=== PATIENT | female | born 1955 | race Caucasian/White ===

== ENCOUNTER 2017-05-01 21:20 | Emergency (ER) | payer MEDICARE ==
[~2017-05-01] VITALS: Ht 167.6 cm; Wt 50.8 kg
[~2017-05-01 21:20] MED LIST: ADULT LOW DOSE81 MG; ANALPRAM E 2.51 EAC1 RECTAL; APAP650 PO; ASPIRIN81 M2 PO; BACTROBAN CREAM30 G1 TOP; BENTYL 20 MG TA20 M1 PO; CALCIUM + D3 E1 EACH PO; CALCIUM 600 +1 EA15 PO; CALCIUM 600 +1 EAC5 PO; CALCIUM 600 +1 EAC9 PO; CARAFATE 1 GM TA1 GM PO; CENTANY30 GM TP; CIPRO250 M2 PO; CIPRO500 M1 PO; CIPRO500 MG PO; CLEOCIN HCL300 MG PO; CLONAZEPAM 1 MG1 M1; FLOMAX0.4 MG PO; GEODON20 MG PO; KEFLEX500 MG PO; KLOR-CON 1010 MEQ PO; LANTUS SUBQ; LANTUSSOLASTAR SUBQ; LEXAPRO20 MG PO; LINZESS290 MCG PO; MAG-OX 400 TAB400 M1 PO; MAGNESIUM OXID400 MG PO; MAGOX 400400 MG PO; MIRALAX17 GM PO; NORVASC5 MG PO; NOVOLOG100 UNIT/1 SUBQ; POTASSIUM20 PO; PREDNISONE 10 M10 MG PO; PREDNISONE 5 MG5 M1 PO; PRILOSEC40 MG PO; RISPERDAL 1 MG T1 MG PO; SEROQUEL 100 M100 M1 PO; SEROQUEL 100 M100 M2 PO; SEROQUEL 100 M100 MG; SEROQUEL 100 M100 MG PO; SEROQUEL 25 MG25 M1 PO; SEROQUEL 50 MG50 M1 PO; SEROQUEL 50 MG50 MG PO; SEROQUEL PO; XANAX 0.25 MG0.25 MG PO
[2017-05-01] MEDS ORDERED: AMOXICILLIN 50500 MG PO (21:26)
[2017-05-01 21:59] LABS: ABSOLUTE LYMPHOCYTES 1.6 thou/uL (0.8-5.3); ABSOLUTE MONOCYTES 0.6 thou/uL (0.0-1.2); ABSOLUTE NEUTROPHILS 5.6 thou/uL (1.6-8.1); BASOPHILS 0.2 %; EOSINOPHILS 0.3 %; HEMATOCRIT 38.3 % (37.0-47.0); LYMPHOCYTES 20.1 %; MCH 31.7 pg (26.0-34.0); MCHC 33.9 g/dL (28.0-37.0); MCV 93.5 fL (80.0-100.0); MPV 7.6 fl. (7.2-11.1); NUCLEATED RBCS 0 /100WBC; PLATELET COUNT* 158 thou/uL (150-400); POLYS 71.4 %; RBC 4.09 mil/uL (4.20-5.00); RDW-CV 13.1 % (10.5-14.5); WBC 7.9 thou/uL (4.0-11.0)
[2017-05-01 22:07] LABS: INFLUENZA A ANTIGEN None Detected (None Detect); INFLUENZA B ANTIGEN None Detected (None Detect)
[2017-05-01 22:09] LABS: ANION GAP 7 mmol/L (7-16); BUN 35 mg/dL (7-18); CALCIUM 8.8 mg/dL (8.5-10.1); CHLORIDE 102 mmol/L (98-107); CO2 30 mmol/L (21-32); CREATININE 1.3 mg/dL (0.6-1.3); GLUCOSE 169 mg/dL (70-99); POTASSIUM 4.6 mmol/L (3.5-5.1); SODIUM 139 mmol/L (136-145)
[2017-05-01 22:16] LABS: ALBUMIN 3.4 g/dL (3.4-5.0); ALKALINE PHOSPHATASE 103 U/L (46-116); SGOT 23 U/L (15-37); SGPT 24 U/L (30-65); TOTAL BILIRUBIN 0.3 mg/dL (<0.1-1.0); TOTAL PROTEIN 8.1 g/dL (6.4-8.2); TROPONIN-I LEVEL <0.06 ng/mL (<0.06)
[2017-05-01] MEDS ORDERED: ZPAK PO ×2 (22:25→22:26)
[2017-05-01] MEDS ORDERED: PROAIR HFA8.5 GM INH ×2 (22:25→22:26)
[2017-05-01] MEDS ORDERED: ACETAMINOPHEN-1 EAC1 PO (22:26)
[2017-05-01] MEDS ORDERED: ALBUTEROL2.5 MG/31 INH (22:32)
[2017-05-01] MEDS ORDERED: TESSALON PERLE100 MG PO (22:32)
[2017-05-01 22:43] VITALS: BP 188/73
[2018-02-25] MEDS ORDERED: AUGMENTIN 875-1 EACH PO (23:18)
[2018-02-25] MEDS ORDERED: PROAIR HFA8.5 GM INH (23:18)
[2018-02-25] MEDS ORDERED: ERYTHROMYCIN E3.5 G2 OPHTHALMIC (23:18)
== END 2017-05-01 22:43 | disposition home or self-care (01) ==
LOC: M.ERS 21:20
PROVIDERS: Physician Assistant
DX: J20.9 Acute bronchitis, unspecified (principal); Q90.9 Down syndrome, unspecified; E11.9 Type 2 diabetes mellitus without complications; Z79.4 Long term (current) use of insulin; Z88.2 Allergy status to sulfonamides

== ENCOUNTER 2017-05-31 22:25 | Emergency (ER) | payer MEDICARE ==
[~2017-05-31] VITALS: Ht 144.8 cm; Wt 49.9 kg
[~2017-05-31 22:25] MED LIST changes: +ACETAMINOPHEN-1 EAC1 PO; +ALBUTEROL2.5 MG/31 INH; +AMOXICILLIN 50500 MG PO; +PROAIR HFA8.5 GM INH; +TESSALON PERLE100 MG PO; +ZPAK PO
[2017-05-31 23:39] LABS: ABSOLUTE LYMPHOCYTES 1.1 thou/uL (0.8-5.3); ABSOLUTE MONOCYTES 0.6 thou/uL (0.0-1.2); BASOPHILS 0.2 %; EOSINOPHILS 0.1 %; LYMPHOCYTES 23.8 %; MCHC 34.3 g/dL (28.0-37.0); MCV 93.3 fL (80.0-100.0); MONOCYTES 11.9 %; MPV 7.3 fl. (7.2-11.1); NUCLEATED RBCS 0 /100WBC; PLATELET COUNT* 167 thou/uL (150-400); RBC 3.75 mil/uL (4.20-5.00); RDW-CV 13.4 % (10.5-14.5); WBC 4.7 thou/uL (4.0-11.0)
[2017-05-31 23:52] LABS: ANION GAP 8 mmol/L (7-16); BUN 27 mg/dL (7-18); CALCIUM 8.7 mg/dL (8.5-10.1); CHLORIDE 98 mmol/L (98-107); CO2 28 mmol/L (21-32); CREATININE 1.6 mg/dL (0.6-1.3); GLUCOSE 178 mg/dL (70-99); SODIUM 134 mmol/L (136-145)
[2017-06-01 00:03] LABS: ALBUMIN 3.1 g/dL (3.4-5.0); ALKALINE PHOSPHATASE 86 U/L (46-116); SGOT 20 U/L (15-37); SGPT 15 U/L (30-65); TOTAL BILIRUBIN 0.4 mg/dL (<0.1-1.0); TOTAL PROTEIN 7.5 g/dL (6.4-8.2); TROPONIN-I LEVEL <0.06 ng/mL (<0.06)
[2017-06-01 00:27] LABS: INFLUENZA B ANTIGEN None Detected (None Detect)
[2017-06-01] MEDS ORDERED: OSELB75 PO (00:33)
[2017-06-01] MEDS ORDERED: ALBUTEROL2.5 MG/31 INH (00:33)
[2017-06-01 01:45] VITALS: BP 156/90
--- NOTE | 2017-06-01 11:03 | EKG ---
[place] [address] ELECTROCARDIOGRAM REPORT Name: SANJUANADAFNE Amarilis Room: [facility]#: [id number] Admission: 05/31/17 Attend Phys: Discharge: 06/01/17 Date of : 55 Report #: [id number] THIS REPORT FOR: //name// [facility] ED Test Date: 2017-05-31 Test Time: 22:59:36 Pat Name: DAFNE WEI Department: Room: Gender: F Gristmill Operator: BALA Jeronimo : 1955 Requested By: Debo Edge Order Number: [id number] MD: Benjie Ko Measurements Intervals [place] Rate: 81 P: 52 PA: 141 QRS: 39 QRSD: 83 T: 54 QT: 383 QTc: 445 Interpretive Statements Sinus rhythm Compared to ECG 02/01/2017 00:58:32 Sinus tachycardia no longer present ST (T wave) deviation no longer present Electronically Signed On 06-01-2017 11:03:23 CARBON COATING MACHINE OPERATOR by Benjie Ko [email or web address] <ELECTRONICALLY SIGNED> By: Benjie Ko MD, [facility] 06/01/17 1103 D: [id number] Benjie Ko MD, FACC /EPI
[2018-02-25] MEDS ORDERED: AUGMENTIN 875-1 EACH PO (23:18)
[2018-02-25] MEDS ORDERED: ERYTHROMYCIN E3.5 G2 OPHTHALMIC (23:18)
[2018-02-25] MEDS ORDERED: PROAIR HFA8.5 GM INH (23:18)
== END 2017-06-01 01:48 | disposition home or self-care (01) ==
LOC: M.ERS 22:25
PROVIDERS: Nurse Practitioner Family
DX: J11.1 Influenza due to unidentified influenza virus with other respiratory manifestations (principal); E11.9 Type 2 diabetes mellitus without complications; Z88.2 Allergy status to sulfonamides; Z79.4 Long term (current) use of insulin; Z90.49 Acquired absence of other specified parts of digestive tract

== ENCOUNTER 2017-10-17 02:53 | Emergency (ER) | payer MEDICARE ==
[~2017-10-17] VITALS: Ht 157.4 cm; Wt 54.0 kg
[~2017-10-17 02:53] MED LIST changes: +OSELB75 PO
[2017-10-17] MEDS ORDERED: LEVEMIR FL100 UNIT/2 SUBQ (03:05)
[2017-10-17 03:38] LABS: ABSOLUTE BASOPHILS 0.1 thou/uL (0.0-0.2); ABSOLUTE EOSINOPHILS 0.1 thou/uL (0.0-0.7); ABSOLUTE LYMPHOCYTES 2.4 thou/uL (0.8-5.3); ABSOLUTE MONOCYTES 0.5 thou/uL (0.0-1.2); ABSOLUTE NEUTROPHILS 5.4 thou/uL (1.6-8.1); EOSINOPHILS 1.6 %; HEMATOCRIT 40.2 % (37.0-47.0); HEMOGLOBIN 13.8 gm/dL (12.0-15.0); LYMPHOCYTES 27.8 %; MCH 32.8 pg (26.0-34.0); MCHC 34.2 g/dL (28.0-37.0); MONOCYTES 6.4 %; MPV 7.2 fl. (7.2-11.1); NUCLEATED RBCS 0 /100WBC; PLATELET COUNT* 247 thou/uL (150-400); POLYS 63.2 %; RBC 4.19 mil/uL (4.20-5.00); RDW-CV 12.8 % (10.5-14.5); WBC 8.6 thou/uL (4.0-11.0)
[2017-10-17 04:11] LABS: URINE BILIRUBIN NEGATIVE (Negative); URINE BLOOD 1+ (Negative); URINE CLARITY CLEAR; URINE COLOR STRAW; URINE GLUCOSE-RANDOM NEGATIVE (Negative); URINE KETONES NEGATIVE (Negative); URINE LEUKOCYTES-REFLEX TRACE (Negative); URINE NITRITE-REFLEX NEGATIVE (Negative); URINE PROTEIN NEGATIVE (Negative); URINE SPECIFIC GRAVITY <= 1.005 (1.005-1.030); URINE UROBILINOGEN 0.2 E.U./dl (0.2-1.0)
[2017-10-17 04:30] LABS: CALCIUM 9.8 mg/dL (8.5-10.1); CREATININE 1.3 mg/dL (0.6-1.3); POTASSIUM 5.1 mmol/L (3.5-5.1)
[2017-10-17 04:41] LABS: ALBUMIN 3.2 g/dL (3.4-5.0); TOTAL BILIRUBIN 0.3 mg/dL (<0.1-1.0); TOTAL PROTEIN 7.5 g/dL (6.4-8.2)
[2017-10-17 05:00] LABS: CASTS None Seen /LPF (None Seen); SQUAMOUS 0-3 Few /LPF (0-3); URINE RBC 3-10 Few /HPF (0-2); URINE WBC-REFLEX 0-5 Rare /HPF (0-5)
[2017-10-17 05:01] LABS: BACTERIA-REFLEX 1-9 Few /HPF (None Seen); CRYSTALS None Seen /LPF (None Seen)
[2017-10-17 05:28] VITALS: BP 123/63
[2018-02-25] MEDS ORDERED: AUGMENTIN 875-1 EACH PO (23:18)
[2018-02-25] MEDS ORDERED: ERYTHROMYCIN E3.5 G2 OPHTHALMIC (23:18)
[2018-02-25] MEDS ORDERED: PROAIR HFA8.5 GM INH (23:18)
== END 2017-10-17 05:35 | disposition home or self-care (01) ==
LOC: M.ERS 02:53
PROVIDERS: Emergency Medicine
DX: R10.84 Generalized abdominal pain (principal); R31.9 Hematuria, unspecified; E11.9 Type 2 diabetes mellitus without complications; Z79.4 Long term (current) use of insulin; Z86.2 Personal history of diseases of the blood and blood-forming organs and certain disorders involving the immune mechanism; Z90.49 Acquired absence of other specified parts of digestive tract; Z88.2 Allergy status to sulfonamides

== ENCOUNTER 2018-02-07 23:15 | Emergency (ER) | payer MEDICARE ==
[~2018-02-07] VITALS: Ht 154.9 cm; Wt 54.0 kg
[~2018-02-07 23:15] MED LIST changes: +LEVEMIR FL100 UNIT/2 SUBQ
[2018-02-07 23:56] LABS: ABSOLUTE EOSINOPHILS 0.1 thou/uL (0.0-0.7); ABSOLUTE LYMPHOCYTES 0.7 thou/uL (0.8-5.3); ABSOLUTE MONOCYTES 0.4 thou/uL (0.0-1.2); ABSOLUTE NEUTROPHILS 3.4 thou/uL (1.6-8.1); BASOPHILS 0.5 %; EOSINOPHILS 1.2 %; HEMATOCRIT 36.6 % (37.0-47.0); HEMOGLOBIN 12.2 gm/dL (12.0-15.0); LYMPHOCYTES 15.6 %; MCH 31.1 pg (26.0-34.0); MCHC 33.3 g/dL (28.0-37.0); MCV 93.3 fL (80.0-100.0); MONOCYTES 8.6 %; MPV 6.7 fl. (7.2-11.1); NUCLEATED RBCS 0 /100WBC; PLATELET COUNT* 199 thou/uL (150-400); POLYS 74.1 %; RBC 3.93 mil/uL (4.20-5.00); RDW-CV 13.4 % (10.5-14.5); WBC 4.6 thou/uL (4.0-11.0)
[2018-02-08 00:03] LABS: CALCIUM 8.7 mg/dL (8.5-10.1); CREATININE 1.8 mg/dL (0.6-1.3); POTASSIUM 3.9 mmol/L (3.5-5.1)
[2018-02-08 00:08] LABS: TOTAL BILIRUBIN 0.3 mg/dL (<0.1-1.0); TOTAL PROTEIN 7.2 g/dL (6.4-8.2)
[2018-02-08 00:43] LABS: URINE BILIRUBIN NEGATIVE (Negative); URINE BLOOD 2+ (Negative); URINE CLARITY CLEAR; URINE COLOR YELLOW; URINE GLUCOSE-RANDOM 2+ (Negative); URINE KETONES NEGATIVE (Negative); URINE LEUKOCYTES-REFLEX TRACE (Negative); URINE NITRITE-REFLEX NEGATIVE (Negative); URINE PROTEIN NEGATIVE (Negative); URINE SPECIFIC GRAVITY 1.015 (1.005-1.030); URINE UROBILINOGEN 0.2 E.U./dl (0.2-1.0)
[2018-02-08 00:50] VITALS: BP 166/80
[2018-02-08 00:53] LABS: CASTS None Seen /LPF (None Seen); SQUAMOUS >10 Many /LPF (0-3)
[2018-02-08 00:54] LABS: BACTERIA-REFLEX 1-9 Few /HPF (None Seen); CRYSTALS None Seen /LPF (None Seen); URINE RBC 3-10 Few /HPF (0-2); URINE WBC-REFLEX 6-15 Few /HPF (0-5)
[2018-02-25] MEDS ORDERED: ERYTHROMYCIN E3.5 G2 OPHTHALMIC (23:18)
[2018-02-25] MEDS ORDERED: AUGMENTIN 875-1 EACH PO (23:18)
[2018-02-25] MEDS ORDERED: PROAIR HFA8.5 GM INH (23:18)
== END 2018-02-08 00:50 | disposition home or self-care (01) ==
LOC: M.ERS 23:15
PROVIDERS: Family Medicine
DX: R31.9 Hematuria, unspecified (principal); E11.9 Type 2 diabetes mellitus without complications; Z90.49 Acquired absence of other specified parts of digestive tract; Z86.2 Personal history of diseases of the blood and blood-forming organs and certain disorders involving the immune mechanism; Z88.2 Allergy status to sulfonamides; Z79.4 Long term (current) use of insulin

== ENCOUNTER → 2018-02-25 | Emergency (ER) | payer MEDICARE ==
[~2018-02-25] VITALS: Ht 157.5 cm; Wt 63.3 kg
[~2018-02-25] MED LIST changes: +ATORVASTATIN CA40 MG PO; +AUGMENTIN 875-1 EACH PO; +BRILINTA90 MG PO; +ERYTHROMYCIN E3.5 G2 OPHTHALMIC; +LOPRESSOR25 PO
[2018-02-25 19:04] LABS: ABSOLUTE LYMPHOCYTES 1.5 thou/uL (0.8-5.3); ABSOLUTE MONOCYTES 0.3 thou/uL (0.0-1.2); ABSOLUTE NEUTROPHILS 4.1 thou/uL (1.6-8.1); BASOPHILS 0.3 %; EOSINOPHILS 0.4 %; HEMATOCRIT 38.9 % (37.0-47.0); HEMOGLOBIN 13.2 gm/dL (12.0-15.0); LYMPHOCYTES 25.2 %; MCH 31.2 pg (26.0-34.0); MCHC 33.9 g/dL (28.0-37.0); MONOCYTES 4.8 %; MPV 6.4 fl. (7.2-11.1); NUCLEATED RBCS 0 /100WBC; PLATELET COUNT* 229 thou/uL (150-400); POLYS 69.3 %; RBC 4.23 mil/uL (4.20-5.00); RDW-CV 13.5 % (10.5-14.5); WBC 5.9 thou/uL (4.0-11.0)
[2018-02-25 19:13] LABS: APTT 30.5 Seconds (25.0-31.3); INR 0.9; PROTIME 9.5 Seconds (9.20-11.50)
[2018-02-25 19:17] LABS: ANION GAP 4 mmol/L (7-16); BUN 22 mg/dL (7-18); CALCIUM 10.2 mg/dL (8.5-10.1); CHLORIDE 100 mmol/L (98-107); CO2 30 mmol/L (21-32); CREATININE 1.2 mg/dL (0.6-1.3); GLUCOSE 175 mg/dL (70-99); POTASSIUM 3.8 mmol/L (3.5-5.1); SODIUM 134 mmol/L (136-145)
[2018-02-25 19:36] LABS: ALBUMIN 3.5 g/dL (3.4-5.0); ALKALINE PHOSPHATASE 107 U/L (46-116); CK-MB MASS 0.7 ng/mL (<0.5-3.6); LIPASE 157 U/L (73-393); MAGNESIUM 1.8 mg/dL (1.8-2.4); NT-PRO BRAIN NAT PEPTIDE 61 pg/mL (<300); SGOT 20 U/L (15-37); SGPT 33 U/L (30-65); TOTAL BILIRUBIN 0.3 mg/dL (<0.1-1.0); TOTAL PROTEIN 8.1 g/dL (6.4-8.2); TROPONIN-I LEVEL <0.06 ng/mL (<0.06)
[2018-02-25 19:52] LABS: URINE CLARITY CLEAR; URINE COLOR COLORLESS
[2018-02-25 19:53] LABS: URINE BILIRUBIN NEGATIVE (Negative); URINE BLOOD NEGATIVE (Negative); URINE GLUCOSE-RANDOM NEGATIVE (Negative); URINE KETONES NEGATIVE (Negative); URINE LEUKOCYTES-REFLEX NEGATIVE (Negative); URINE NITRITE-REFLEX NEGATIVE (Negative); URINE PROTEIN NEGATIVE (Negative); URINE UROBILINOGEN 0.2 E.U./dl (0.2-1.0)
[2018-02-25 20:18] LABS: INFLUENZA A ANTIGEN None Detected (None Detect); INFLUENZA B ANTIGEN None Detected (None Detect)
[2018-02-26 00:08] VITALS: BP 154/84
--- NOTE | 2018-02-26 12:03 | EKG ---
[place] [address] ELECTROCARDIOGRAM REPORT Name: DAFNE WEI [id number] Admission: 02/25/18 Attend Phys: Discharge: Date of : 55 Report #: [id number] THIS REPORT FOR: //name// [facility] ED Test Date: 2018-02-25 Test Time: 18:38:15 Pat Name: DAFNE WEI Department: Room: Gender: F Retoucher Photoengraving: Yeni ADLER : 1955 Requested By: Cm Mckenzie Order Number: [id number] MD: Benjie Ko Measurements Intervals [place] Rate: 112 P: 43 NV: 145 QRS: 25 QRSD: 80 T: 7 QT: 319 QTc: 436 Interpretive Statements Sinus tachycardia Borderline repolarization abnormality Compared to ECG 05/31/2017 22:59:36 Sinus rhythm no longer present Electronically Signed On 02-26-2018 12:02:51 CDT by Benjie Ko [email or web address] <ELECTRONICALLY SIGNED> By: Benjie Ko MD, FACC 02/26/18 1202 1838 1838 Benjie Ko MD, FACC /EPI
--- NOTE | 2018-03-01 11:43 | EKG ---
[place] [address] ELECTROCARDIOGRAM REPORT Name: DAFNE WEI Room: [facility]#: [id number] Admission: 02/25/18 Attend Phys: Discharge: Date of : 55 Report #: [id number] THIS REPORT FOR: //name// [facility] Test Date: 2018-02-28 Test Time: 17:56:28 Pat Name: DAFNE WEI Department: Room: [address] Gender: F Products Mechanical Design Engineer: KOBE : 1955 Requested By: Dileep Bryant Order Number: [id number] [place] MD: Benjie Ko Measurements Intervals [place] Rate: 75 P: -13 MA: 133 QRS: 10 QRSD: 92 T: 31 QT: 389 QTc: 435 Interpretive Statements Sinus rhythm Electronically Signed On 03-01-2018 11:43:03 EXPORT AGENT by Bejnie Ko [email or web address] <ELECTRONICALLY SIGNED> By: Benjie Ko MD, [facility] 03/01/18 1143 1756 1756 Benjie Ko MD, [facility] /EPI
== END ==
LOC: M.ERS 18:33
PROVIDERS: Emergency Medicine; Family Medicine
DX: J06.9 Acute upper respiratory infection, unspecified (principal); E11.9 Type 2 diabetes mellitus without complications; Z90.49 Acquired absence of other specified parts of digestive tract; Z88.2 Allergy status to sulfonamides

== ENCOUNTER 2018-02-26 22:20 | Inpatient (IN) | payer MEDICARE ==
[~2018-02-26] VITALS: Ht 157.5 cm; Wt 65.8 kg
--- NOTE | ~2018-02-26 | EKG ---
[place] [address] ELECTROCARDIOGRAM REPORT Name: DAFNE WEI Room: [address] ADM IN M.R.#: [id number] Admission: 02/26/18 Attend Phys: Rafael Noland MD Discharge: Date of : 55 Report #: [id number] THIS REPORT FOR: //name// [facility] ED Test Date: 2018-02-26 Test Time: 22:26:44 Pat Name: DAFNE WEI Department: Room: [facility] Gender: F Sign Maintenance: MARICRUZ : 1955 Requested By: Geno Beltran Order Number: [id number] MD: Measurements Intervals [place] Rate: 113 P: 36 [place]: 133 QRS: 26 QRSD: 83 T: 71 QT: 313 QTc: 430 Interpretive Statements Sinus tachycardia Minimal ST depression, anterolateral leads Compared to ECG 02/25/2018 18:38:15 ST (T wave) deviation now present [email or web address] By: [id number] Epiphany EpiphanyMD /EPI
--- NOTE | ~2018-02-26 | EKG ---
[place] [address] ELECTROCARDIOGRAM REPORT Name: SANJUANADENADAFNE Room: [address] ADM IN M.R.#: [id number] Admission: 02/26/18 Attend Phys: Rafael Noland MD Discharge: Date of : 55 Report #: [id number] THIS REPORT FOR: //name// [facility] Test Date: 2018-02-27 Test Time: 08:12:05 Pat Name: DAFNE WEI Department: Room: [address] Gender: F Burglar Alarm Superintendent: ADONIS HOLT : 1955 Requested By: Rafael Noland Order Number: [id number] [place] MD: Measurements Intervals [place] Rate: 71 P: -22 MO: 140 QRS: 27 QRSD: 87 T: 45 QT: 414 QTc: 450 Interpretive Statements Sinus rhythm Compared to ECG 02/25/2018 18:38:15 Sinus tachycardia no longer present [email or web address] By: 1 0812 Epiphany Epiphany, /EPI
[~2018-02-26 22:20] MED LIST changes: -ATORVASTATIN CA40 MG PO; -BRILINTA90 MG PO; -LOPRESSOR25 PO
[2018-02-26 22:25] VITALS: BP 178/87
[2018-02-26 22:39] LABS: ABSOLUTE EOSINOPHILS 0.1 thou/uL (0.0-0.7); ABSOLUTE LYMPHOCYTES 1.6 thou/uL (0.8-5.3); ABSOLUTE MONOCYTES 0.4 thou/uL (0.0-1.2); ABSOLUTE NEUTROPHILS 3.3 thou/uL (1.6-8.1); BASOPHILS 0.3 %; EOSINOPHILS 2.4 %; HEMATOCRIT 38.5 % (37.0-47.0); HEMOGLOBIN 12.8 gm/dL (12.0-15.0); LYMPHOCYTES 28.9 %; MCH 30.8 pg (26.0-34.0); MCHC 33.2 g/dL (28.0-37.0); MCV 92.8 fL (80.0-100.0); MONOCYTES 8.1 %; MPV 6.4 fl. (7.2-11.1); NUCLEATED RBCS 0 /100WBC; PLATELET COUNT* 214 thou/uL (150-400); POLYS 60.3 %; RBC 4.15 mil/uL (4.20-5.00); RDW-CV 13.7 % (10.5-14.5); WBC 5.4 thou/uL (4.0-11.0)
[2018-02-26 22:48] LABS: ANION GAP 9 mmol/L (7-16); BUN 26 mg/dL (7-18); CALCIUM 8.9 mg/dL (8.5-10.1); CHLORIDE 98 mmol/L (98-107); CO2 28 mmol/L (21-32); CREATININE 1.4 mg/dL (0.6-1.3); GLUCOSE 224 mg/dL (70-99); POTASSIUM 3.6 mmol/L (3.5-5.1); SODIUM 135 mmol/L (136-145)
[2018-02-26 22:49] LABS: INR 0.9; PROTIME 9.5 Seconds (9.20-11.50)
[2018-02-26 22:59] LABS: ALBUMIN 3.3 g/dL (3.4-5.0); ALKALINE PHOSPHATASE 117 U/L (46-116); NT-PRO BRAIN NAT PEPTIDE 141 pg/mL (<300); SGOT 15 U/L (15-37); SGPT 30 U/L (30-65); TOTAL BILIRUBIN 0.3 mg/dL (<0.1-1.0); TOTAL PROTEIN 7.8 g/dL (6.4-8.2); TROPONIN-I LEVEL <0.06 ng/mL (<0.06)
[2018-02-26 23:32] LABS: URINE BILIRUBIN NEGATIVE (Negative); URINE BLOOD NEGATIVE (Negative); URINE CLARITY CLEAR; URINE COLOR YELLOW; URINE GLUCOSE-RANDOM TRACE (Negative); URINE KETONES NEGATIVE (Negative); URINE LEUKOCYTES-REFLEX NEGATIVE (Negative); URINE NITRITE-REFLEX NEGATIVE (Negative); URINE PROTEIN NEGATIVE (Negative); URINE SPECIFIC GRAVITY <= 1.005 (1.005-1.030); URINE UROBILINOGEN 0.2 E.U./dl (0.2-1.0)
[2018-02-27 00:10] VITALS: BP 160/73
[2018-02-27 04:24] VITALS: BP 140/77
--- NOTE | 2018-02-27 05:05 | NUR ---
pt arrives at 0037 admitted to room 228, pt is alert oriented to self and place, pt is accompanied by msaon her niece and DPOA, pt able to move from stretcher to bed with minimal assistance, cardiac monitoring initiated, pt is hypertensive, called nursing electrical plumbing supervisor to gets meds from pharmacy, the patient continues to complain of chest pain, dr davenport notified, received orders for pain medication, pt is assisted to get up to bed side commode frequently to void, urine is clear and yellow with no foul odor noted, pt resting in bed, tracing nsr on shipping lead, no s/s acute distress, call light within reach, bed alarm on , siderails up x 4
[2018-02-27 08:40] VITALS: BP 182/77
[2018-02-27 12:05] VITALS: BP 146/62
--- NOTE | 2018-02-27 12:13 | NUR ---
Pt is A&O. Resides at home with her niece, Juliane. Pt stated that she can dress and feed herself, stated that Juliane cleans the house and cooks. Per chart, Pt has down syndrome. Pt stated that she does not use any DME. CM left VM for niece, to complete assessment. Pt kept stating "I don't feel good today, the Dr told me I am staying in the hospital." Anticipate that Pt will dc home once medically stable. Following.
[2018-02-27 15:41] VITALS: BP 120/55
[2018-02-27 15:52] LABS: INFLUENZA A ANTIGEN None Detected (None Detect); INFLUENZA B ANTIGEN None Detected (None Detect)
--- NOTE | 2018-02-27 17:04 | NUR ---
PT REMAINED ALERT AND ORIENTED. PT HAS C/O CHEST PAIN. EKG COMPLETED AND NEGATIVE. MORPHINE ORDERED AND ADMINISTERED. UNABLE TO ASSESS IF PAIN DECREASED. PT HAS ECHO AND STRESS TESTS ORDERED. PT IS ON A CARB CONTROL DIET AND ACCU CHECK. PT IS STAND BY ASSIST. PT C/O NAUSEA, PO ZOFRAN GIVEN. HOURLY ROUNDING COMPLETED. WILL CONTINUE TO MONITOR. PT IS NSR ON THE MONITOR.
--- NOTE | 2018-02-27 17:53 | NUR ---
REVIEWED AND AGREE WITH ALL CHARTING AND ASSESSMENTS COPLETED BY NORIS Pace RN.
[2018-02-27 20:23] VITALS: BP 128/68
[2018-02-28 00:38] VITALS: BP 116/63
--- NOTE | 2018-02-28 00:46 | NUR ---
PT CARE ASSUMED AT 1930. PT ALERT AND ORIENTED TO PLACE, PERSON AND SITUATION. SAT 88%, NC AT 2L OXYGEN CONNECTED. CALL LIGHT WITHIN REACH AND FALL PRECAUTIONS MAINTAINED. NSR ON MONITOR. WILL CONTINUE TO MONITOR.
[2018-02-28 03:37] VITALS: BP 153/74
[2018-02-28 05:03] LABS: CHOLESTEROL 196 mg/dL (<200); HDL CHOLESTEROL 49 mg/dL (>40); LDL CHOLESTEROL 125 mg/dL (<100); TRIGLYCERIDE 114 mg/dL (<150); VLDL 23 mg/dL (<40)
[2018-02-28 05:04] LABS: SERUM ASSESSMENT CLEAR
--- NOTE | 2018-02-28 06:19 | NUR ---
PT ALERT TO HER OWN ABILITY, HAS COGNITIVE DISABILITY. SAT MAINTAINED IN 2L OXYGEN VIA NC. HOURLY ROUNDINGS DONE FOR SAFETY. PT SEEN RESTING IN BED. FALL PRECAUTIONS MAINTAINED AND CALL LIGHT WITHIN REACH. WILL CONTINUE TO MONITOR.
[2018-02-28 08:00] VITALS: BP 151/71
--- NOTE | 2018-02-28 11:30 | NUR ---
ASSUMED CARE OF PATIENT THIS AM AT 0730. PATIENT IS ALERT AND ORIENTED TO PERSON AND PLACE. SHE DENIES PAIN AND DISCOMFORT. PATIENT HAS BEEN UP TO THE BATHROOM WITN STANDBY ASSIST. SHE HAS VOICED NO C/O PAIN THUS FAR TODAY. TELE SHOWS SR. PATIENT IS TAKING HER MEALS WELL. DR PEÑA IN TO DISCUSS PLANS FOR TESTS TOMMORROW. PATIENT IS REPEATING NEW INFORMATION OFTEN THROUGHOUT THE DAY. O2 SAT 92@ ON ROOM AIR THIS AM. PATIENT PLACED ON O2 AT 2 LITERS. ASSISTED UP TO CHAIR, AND REMAINS THERE AT THIS TIME.
[2018-02-28 11:48] VITALS: BP 157/76
--- NOTE | 2018-02-28 12:19 | CON ---
[address] [address] CONSULTATION Name: DAFNE WEI Room: [address] ADM IN M.R.#: [id number] Admission: 02/26/18 Attend Phys: Rafael Noland MD Discharge: Date of : 55 Report #: [id number] THIS REPORT FOR: //name// CC: Rafael Yatesaleks Perezaleks HISTORY OF PRESENT ILLNESS: I was asked by Dr. Noland to see this 62-year-old white female in cardiology consultation for evaluation and treatment of chest pain. This lady is said to have Down syndrome; however, her facial appearance does not look like Down syndrome to me and I do not believe that she has a significant number of ulnar loops on her fingers, although they are hard to assess as she gets her fingers stuck quite a bit. She is a very poor historian. Her chief complaint really is that she just feels sick. She denied any chest pain at this time to me; however, apparently she was admitted because she had chest pain, but she told me that her chest pain was a long time ago. She told other people that it lasted a long time. She is a very poor historian. She could not relate to me whether it was worse with activity or better with rest, or associated with shortness of breath, nausea, vomiting or diaphoresis, and she could not relate whether it was related to food or whether or not she had nitroglycerin. She could not tell me whether she had any radiation of the pain. She denies dyspnea on exertion, shortness of breath at rest, orthopnea, PND or edema. She has not had syncope according to her. She says she does not smoke or drink. She does, however, have insulin-dependent diabetes mellitus and high blood pressure and is on treatment for those entities. She apparently does not have family history of heart disease, although she could not tell me her family history. She does not have kidney disease; I believe her creatinine was normal. She has not had any strokes or TIAs or claudication or open or nonhealing wounds. She has no previous heart problems. She has had a cholecystectomy. She has a history of plasmapheresis for some reason and she has had a biopsy of her kidney. ALLERGIES: SHE IS SAID TO BE ALLERGIC TO SULFA. REVIEW OF SYSTEMS: Completely unreliable. She answers yes to every question. SOCIAL HISTORY: She is single. She does not smoke, drink or use illegal drugs. She is unemployed. She has never been employed. LABORATORY DATA: Her chest x-ray showed no acute abnormality in the chest. Troponins were negative x 3-5. I found 3, but I was told it was 5, and she had a normal EKG. PHYSICAL EXAMINATION: GENERAL: She presents as well-developed, well-nourished white female, in no acute distress. VITAL SIGNS: Pulse was 72 and regular, blood pressure is 182/77, respirations 16 and regular, temperature is 98.2. [place] [address] CONSULTATION Name: DAFNE WEI Room: [address] IN .Jarek#: [id number] Admission: 02/26/18 Attend Phys: Rafael Noland MD Discharge: Date of : 55 Report #: [id number] HEENT: Her head was atraumatic. Eyes clear. NECK: Supple. There is no jugular venous distention or hepatojugular reflux. Thyroid is not enlarged. There is no adenopathy. SKIN: Warm and dry. Mucous membranes are moist. LUNGS: Clear to auscultation and percussion. HEART: Revealed normal first and second heart sound. There is soft S4. There is no S3. There are no murmurs, rubs, thrills, heaves or gallops. PMI is nondisplaced. ABDOMEN: Soft, flat, nontender, no palpable masses, no organomegaly. EXTREMITIES: Reveal no cyanosis, clubbing or edema. NEUROLOGIC: The patient mentated normally, talked normally and moved all extremities normally. She was, however, clearly mentally challenged. IMPRESSION: 1. Possible chest pain. 2. Poor historian. 3. Possible Down syndrome. 4. Essential hypertension. 5. Insulin-dependent diabetes mellitus. RECOMMENDATION: She should have an echo stress test, a nasal swab for flu and a fasting lipid profile. Thank you very much for asking me to see the patient. If there are any questions, please feel free to contact me. <ELECTRONICALLY SIGNED> By: Evonne Dawson MD, FACC 02/28/18 1219 1327 1620F. Herb Dawson MD, FACC /nt
[2018-02-28 15:31] VITALS: BP 155/81
[2018-02-28 20:00] VITALS: BP 155/75
[2018-03-01 00:38] VITALS: BP 137/61
--- NOTE | 2018-03-01 06:56 | NUR ---
this nurse assumes care of pt 02/28/18 at 1930, pt is alert and appropriate, pt complains of chest pain, she states I hurt so bad i cant sleep, pt is medicated for pain, pt rests quietly, pt not using call light appropriately tonight for brp, bed alarm on, pt up this morning at 0400, she request to sit in recliner chair, pt repeatedly asks if she is going to see the doctor today and if she can stay here until Thursday, pt has no further complaints of pain, pt continues nsr on cardiac monitoring, sitting in recliner chair with chair alarm on at this time, call light within reach
--- NOTE | 2018-03-01 07:30 | NUR ---
CHANGE OF SHIFT BEDSIDE REPORT GIVEN PATIENT SEEN AT BEDSIDE, IN BED ASLEEP ASSUMED PATIENT CARE
[2018-03-01 08:00] VITALS: BP 158/83
[2018-03-01 12:00] VITALS: BP 149/76
--- NOTE | 2018-03-01 15:59 | 2DMMODE ---
[place] [address] 2 D/M-MODE ECHOCARDIOGRAM Name: DAFNE WEI Room: [address] IN .R.#: [id number] Admission: 02/26/18 Attend Phys: Rafael Noland, Discharge: Date of : 55 Date of Service: 03/01/18 1559 Report #: [id number] THIS REPORT FOR: //name// APPROVED REPORT Study performed: 03/01/2018 11:32:36 EXAM: Comprehensive 2D, Doppler, and color-flow Echocardiogram Patient Location: Bedside BSA: 1.68 HR: 69 bpm BP: 137/61 mmHg Other Information Study Quality: Fair Indications Chest Pain 2D Dimensions IVSd: 10.97 (7-11mm) LVOT Diam: 19.04 (18-24mm) LVDd: 40.72 mm PWd: 9.15 (7-11mm) Ascending Ao: 27.06 (22-36mm) LVDs: 26.88 (25-40mm) Aortic Root: 24.94 mm Volumes Left Atrial Volume (Systole) LA ESV Index: 29.20 mL/m2 Aortic Valve AoV Peak Antonio.: 1.02 m/s AO Peak Gr.: 4.15 mmHg LVOT Max P.40 mmHg AO Mean Gr.: 2.50 mmHg LVOT Mean P.70 mmHg LVOT Max V: 0.92 m/s AO V2 VTI: 22.63 cm LVOT Mean V: 0.60 m/s NABIL (VTI): 2.50 cm2 LVOT V1 VTI: 19.88 cm Mitral Valve E/A Ratio: 0.97 MV Decel. Time: 165.76 ms MV E Max Antonio.: 0.75 m/s MV PHT: 48.07 ms MVA (PHT): 4.58 cm2 [place] [address] 2 D/M-MODE ECHOCARDIOGRAM Name: DAFNE WEI Room: [address] IN .R.#: [id number] Admission: 02/26/18 Attend Phys: Rafael Noland, Discharge: Date of : 55 Date of Service: 03/01/18 1559 Report #: [id number] TDI E/Lateral E': 6.82 E/Medial E': 7.50 Medial E' Antonio.: 0.10 m/s Lateral E' Antonio.: 0.11 m/s Pulmonary Valve PV Peak Antonio.: 0.88 m/s PV Peak Gr.: 3.07 mmHg Tricuspid Valve RAP Estimate: 5.00 mmHg TR Peak Gr.: 20.67 mmHg RVSP: 25.67 mmHg PA Pressure: 25.67 mmHg Left Ventricle The left ventricle is normal size. There is normal LV segmental wall motion. There is normal left ventricular wall thickness. Left ventricular systolic function is normal. The left ventricular ejection fraction is within the normal range. LVEF is 60-65%. Right Ventricle The right ventricle is normal size. The right ventricular systolic function is normal. Atria Left atrium is mildly dilated. The right atrium size is normal. Aortic Valve The aortic valve is normal in structure. No aortic regurgitation is present. There is no aortic valvular stenosis. Mitral Valve The mitral valve is normal in structure. There is no mitral valve regurgitation noted. No evidence of mitral valve stenosis. Tricuspid Valve The tricuspid valve is normal in structure. Trace tricuspid regurgitation. estimated pa pressure 25 mm Hg Pulmonic Valve Pulmonic valve is not well visualized. There is no pulmonic valvular regurgitation. Great Vessels The aortic root is normal in size. IVC is [place] [address] 2 D/M-MODE ECHOCARDIOGRAM Name: DAFNE WEI Room: [address] IN [facility]#: [id number] Admission: 02/26/18 Attend Phys: Rafael Noland, Discharge: Date of : 55 Date of Service: 03/01/18 1559 Report #: [id number] collapses >50% with inspiration. Pericardium There is no pericardial effusion. <Conclusion> LVEF is 60-65%. Left atrium is mildly dilated. <ELECTRONICALLY SIGNED> By: Benjie Ko MD, FACC 03/01/18 1559 155 155 Benjie Ko MD, FACC /INF
[2018-03-01 16:00] VITALS: BP 127/79; BP 135/79
--- NOTE | 2018-03-01 16:23 | CARDNUC ---
[place] [address] CARDIAC NUCLEAR IMAGING REPORT Name: DAFNE WEI Room: [address] IN [facility]#: [id number] Admission: 02/26/18 Attend Phys: Rafael Noland, Discharge: Date of : 55 Date of Service: 03/01/18 1623 Report #: [id number] THIS REPORT FOR: //name// APPROVED REPORT Study performed: 02/27/2018 13:40:00 Indication: Chest pain, Dyspnea Patient Location: In-Patient Room #: 228 Stress Tech: Elena Garcia Stress Nurse: Lanie Alfaro RN Ht: 5 ft 2 in Wt: 148 lbs BSA: 1.68 m2 BMI: 27.06 Medical History Medical History: Angina, SOB, HTN, Diabetes Medications: NTG, Amlodipine, ASA 81 MG Allergies: Sulfa ABT Cardiac Risk Factors: Age, HTN, DM, SOB Previous Cardiac Procedures: None Pretest Chest Pain Characteristics: No chest pain Exercise History: Sedentary Physical Disabilities: Legs, unstable gait Meds Held (24 hrs): NTG Resting Data Rest SPECT myocardial perfusion imaging was performed in supine position 10 minutes following the intravenous injection of 1.2 mCi of Thallium. Time of rest injection: 13:50 Administration Route: IV Administration Site: Right Hand Pharmacologic Stress Pharmacologic stress test was performed by injecting Regadenoson 0.4 mg IV push over 10-15 seconds immediately followed by the intravenous injection of 4.5 mCi of Thallium. Time of stress injection: 09:35 Administration Route: IV Administration Site: Right Hand Heart Rate at time of stress injection: 117 bpm. Gated Stress SPECT was performed 15 [place] [address] CARDIAC NUCLEAR IMAGING REPORT Name: DENA WEIINE Room: [address]#: [id number] Admission: 02/26/18 Attend Phys: Rafael Noland, Discharge: Date of : 55 Date of Service: 03/01/18 1623 Report #: [id number] The images were gated to evaluate regional wall motion and calculate left ventricular ejection fraction. Stress Test Details Stress Test: Pharmacologic stress testing performed using 0.4 mg of regadenoson per 5 mL given IV over 10 seconds. Reason for pharmacologic stress test: physical limitation, leg weakness, unsteady gait.. HR Max Heart Rate (APMHR): 158 bpm Resting HR: 73 bpm Target HR (85% APMHR): 134 bpm Max HR Achieved: 117 bpm % of APMHR: 74 Recovery HR: 106 bpm BP Resting BP: 157/71 mmHg Recovery BP: 158/74 mmHg ECG Resting ECG: Sinus Rhythm Stress ECG: Sinus Tachycardia ST Change: Horizontal ST depression Maximum ST Deviation: 0.5 mm Arrhythmia: None Recovery ECG: Sinus Rhythm Recovery ST Change: Horizontal ST depression Recovery ST Deviation: 0.5 mm Recovery Arrhythmia: None Clinical Reason for Termination: Completed protocol Stress Symptoms: None Exercise duration: 0 min 0 sec Exercise capacity: 1.00 METs The patient tolerated Lexiscan infusion without significant symptoms. Nurse Comments Patient exhibited with some confusion and possible learning disabled/mentally challanged. Patient could not answer questions appropriately. Patient tolerated sitting lexiscan with no side effects reported. Patient recovery unremarkable, patient was escorted with staff via wheelchair to [place] [address] CARDIAC NUCLEAR IMAGING REPORT Name: DAFNE WEI Room: [address] IN [facility].#: [id number] Admission: 02/26/18 Attend Phys: Rafael Noland, Discharge: Date of : 55 Date of Service: 03/01/18 1623 Report #: [id number] Stress ECG Conclusion The baseline 12-lead elect cardiogram shows sinus rhythm without significant ST or T wave abnormality. EKGs obtained during and post Lexiscan stress show 0.[address] segment depression in the inferolateral leads. There were no stress-induced arrhythmias. Study Quality Study: Good Artifact: No artifact Study Data Post stress, the left ventricular ejection was 78%.. TID = 1.85. Perfusion Perfusion images show reversible defects involving the basal inferior as well as apical renteria. Wall Motion Global LV systolic function appears to be normal. Nuclear Conclusion ECG Findings: equivocal Clinical Findings: negative for ischemia Nuclear Findings: positive for ischemia Exercise Capacity: not assessed Left Ventricular Function: normal Risk Study: high Myocardial perfusion images suggest ischemia in both the basal inferior as well as apical renteria. This is a high risk study. <Conclusion> The baseline 12-lead elect cardiogram shows sinus rhythm without significant ST or T wave abnormality. EKGs obtained during and post Lexiscan stress show 0.[address] segment depression in the inferolateral leads. There were no stress-induced arrhythmias. <ELECTRONICALLY SIGNED> By: Ed Mancera MD, FACC 03/01/18 1623 162 162 Ed Mancera MD, FACC /INF
--- NOTE | 2018-03-01 16:25 | EKG ---
[place] [address] ELECTROCARDIOGRAM REPORT Name: DAFNE WEI Room: [address] ADM IN M.R.#: [id number] Admission: 02/26/18 Attend Phys: Rafael Noland MD Discharge: Date of : 55 Report #: [id number] THIS REPORT FOR: //name// [facility] Test Date: 2018-03-01 Test Time: 14:48:00 Pat Name: DAFNE WEI Department: Room: [address] Gender: F Design Agent: : 1955 Requested By: Dileep Bryant Order Number: [id number] Lio MD: Benjie Ko Measurements Intervals [place] Rate: 82 P: -25 VA: 127 QRS: 37 QRSD: 86 T: 49 QT: 355 QTc: 415 Interpretive Statements Sinus rhythm Compared to ECG 02/28/2018 17:56:28 No significant changes Electronically Signed On 03-01-2018 16:25:48 MULTICRAFT OPERATOR by Benjie Ko [email or web address] <ELECTRONICALLY SIGNED> By: Benjie Ko MD, [facility] 03/01/18 1625 1448 1448 Benjie Ko MD, FACC /EPI
[2018-03-01 20:00] VITALS: BP 164/77
[2018-03-02] VITALS (11 sets, daily range): BP systolic 134–168; BP diastolic 67–82
--- NOTE | 2018-03-02 02:33 | NUR ---
PATIENT RESTED IN BED, NO ACUTE CHANGES. PATIENT DID NOT SHOW SIGNS OF DISTRESS. FALL PRECAUTIONS IN PLACE, CALL LIGHT WITH IN REACH, HOURLY ROUNDING OBSERVED. PATIENT IS NPO FOR CATH.
--- NOTE | 2018-03-02 07:15 | NUR ---
CHANGE OF SHIFT BEDSIDE REPORT GIVEN PATIENT SEEN AT BEDSIDE IN BED ASLEEP ASSUMED PATIENT CARE
--- NOTE | 2018-03-02 14:36 | EKG ---
[place] [address] ELECTROCARDIOGRAM REPORT Name: DAFNE WEI Room: [address] ADM IN M.R.#: [id number] Admission: 02/26/18 Attend Phys: Rafael Noland MD Discharge: Date of : 55 Report #: [id number] THIS REPORT FOR: //name// [facility] Test Date: 2018-03-02 Test Time: 10:15:52 Pat Name: DAFNE WEI Department: Room: [address] Gender: F Campus Recruiting Coordinator: : 1955 Requested By: Ed Mancera Order Number: [id number] Lio MD: Ed Mancera Measurements Intervals [place] Rate: 61 P: 15 CT: 147 QRS: 30 QRSD: 99 T: 65 QT: 420 QTc: 423 Interpretive Statements Sinus rhythm Compared to ECG 03/01/2018 14:48:00 No changes noted Electronically Signed On 03-02-2018 14:35:48 CHEESE COOK by Ed Mancera [email or web address] <ELECTRONICALLY SIGNED> By: Ed Mancera MD, [facility] 03/02/18 1435 1015 1015 Ed Mancera MD, FACC /EPI
[2018-03-03] VITALS (14 sets, daily range): BP systolic 122–179; BP diastolic 52–93
[2018-03-03 06:02] LABS: HEMATOCRIT 40.5 % (37.0-47.0); HEMOGLOBIN 13.5 gm/dL (12.0-15.0); MCH 31.5 pg (26.0-34.0); MCHC 33.3 g/dL (28.0-37.0); MCV 94.6 fL (80.0-100.0); RBC 4.28 mil/uL (4.20-5.00); RDW-CV 13.7 % (10.5-14.5); WBC 7.8 thou/uL (4.0-11.0)
[2018-03-03 06:15] LABS: ANION GAP 9 mmol/L (7-16); BUN 16 mg/dL (7-18); CALCIUM 9.4 mg/dL (8.5-10.1); CHLORIDE 100 mmol/L (98-107); CO2 26 mmol/L (21-32); CREATININE 1.1 mg/dL (0.6-1.3); GLUCOSE 232 mg/dL (70-99); POTASSIUM 4.3 mmol/L (3.5-5.1); SODIUM 135 mmol/L (136-145); TROPONIN-I LEVEL <0.06 ng/mL (<0.06)
--- NOTE | 2018-03-03 07:20 | NUR ---
CHANGE OF SHIFT, BEDSIDE REPORT PATIENT LESTER IN BED ASLEEP ASSUMED PATIENT CARE
--- NOTE | 2018-03-03 09:00 | CARD ---
[address] [address] CARDIAC CATH REPORT Name: DAFNE WEI Room: [address] IN .R.#: [id number] Admission: 02/26/18 Attend Phys: Rafael Noland MD Discharge: Date of : 55 Report #: [id number] THIS REPORT FOR: //name// APPROVED REPORT Study performed: 03/02/2018 07:35:48 Patient Details Patient Status: In-Patient Room #: The patient is a 62 year-old female Event Personnel Thelma Toledo, Arabella Chan RN RN, Renny Quinn (Makenzie) Calderon Montemayor Michael Professional Employer Consultant, Thelma Longoria GLASS TOUGHENING OPERATOR Monitor, Benjie Ko Resaw Tailer Procedures Performed [facility]SE[facility] Place w/wo Plasty Single LAD [id number] Left Heart Cath w/or w/o Coronaries [id number] [facility] Hemostasis with Hemoband Indication Abnormal ECG, Chest pain Risk Factors Arterial Hypertension, Hypercholesterolemia Admission/Lab Medications/Medications given during procedure Heparin Unfract. Procedure Narrative The patient was brought electively to the Cardiac Catheterization Laboratory and was prepped and draped in a sterile manner. The right wrist was infiltrated with 2% Lidocaine subcutaneous anesthesia. A 6 fr sheath was inserted into the right radial artery. Coronary angiography was performed using coronary diagnostic catheters. The right coronary system was accessed and visualized with a Diagnostic catheter. The left coronary system was accessed and visualized with a Diagnostic catheter. Left ventricular/Aortic Valve gradient assessed via catheter pullback. Closure device was deployed with a 6 Fr vascband. The patient tolerated the procedure well and there were no complications associated with the procedure. There was no hematoma. Intraoperative Conscious Sedation Sedation start time: 824 Case end Time: [place] [address] CARDIAC CATH REPORT Name: DAFNE WEI Room: [address] IN [facility]#: [id number] Admission: 02/26/18 Attend Phys: Rafael Noland MD Discharge: Date of : 55 Report #: [id number] Fentanyl 50 mcg Versed 1 mg Fluoro Time: 8.50 minutes Dose: DAP 09254.00 cGycm2 1218 mGy Contrast Type and Amount: Visipaque 250 ml Coronary Angiography The patient's coronary anatomy is right dominant. Diagnostic Cath Left Main Normal. LAD Normal proximally with a 99% focal stenosis in the midportion and 70% narrowed distally. Diagonal 1 90% proximal tubular stenosis. Circumflex Free of significant disease. OM1 90% tubular stenosis in a large first obtuse marginal branch. OM2 Normal. Right Coronary 40% narrowed proximally and 40% narrowed distally. R PDA Normal. RPLV Normal. Left Ventriculography Left Ventriculography was not performed. Hemodynamics The aortic pressure is 126/86 mmHg with a mean of 104 mmHg. The left ventricular pressure is 109/15 mmHg with a mean of mmHg. The left ventricular end diastolic pressure is 15 mmHg. There was no gradient across the aortic valve upon pullback. Pullback from the left ventricle to the aorta revealed no gradient across the aortic valve. PCI Technique Lesion Anticoagulation was achieved with Heparin. Patient was preloaded with Ticagrelor PO 180 mg. Percutaneous coronary intervention was performed on the mid left anterior descending artery segment. The lesion stenosis prior to intervention was 99% with LUKE 3 flow. A 6FR XB LAD 3.0 100CM Guide Catheter was used to engage the lm ostium. A IG: BMW 190cm Interventional Guidewire was used to cross the lesion. BALLOON DILATION A Balloon catheter Mini Trek RX 2.0 X 12 was inserted and inflated up to 8.00atm for 10seconds. Repeat angiography [place] [address] CARDIAC CATH REPORT Name: DENA WEIINE Room: [address]#: [id number] Admission: 02/26/18 Attend Phys: Rafael Noland MD Discharge: Date of : 55 Report #: [id number] post-dilatation results: 70% stenosis. Additional Inflation: 8.00atm for 11seconds. STENT DEPLOYMENT A drug-eluting stent Morris RX Stent 2.0X22mm was inserted and inflated up to 10atm for 12seconds. Repeat angiography revealed the following post-stent deployment results: 0% stenosis. Additional Inflation: 11atm for 12seconds. Additional Inflation: 11atm for 11seconds. A second stent was placed more proximal with minimal overlap between the 2 stents. Morris RX Stent 2.0x18 mm inflated to 17 sec at 14 abeba. Additional inflation of 10 sec at 16 abeba. Additional inflation of 8 sec at 18atm Final angiography reveals 0 % stenosis with LUKE 3 flow. Conclusion 1. successful placement of 2 drug eluting stents in the mid lad 2. Three-vessel coronary artery disease as outlined above. 3. Normal left ventricular end-diastolic pressure. Recommendations Plan staged stenting of the circumflex artery Medications Administered Ticagrelor Diagnostic Cath Approved by: Ed Mancera MD Date/Time: <ELECTRONICALLY SIGNED> By: Benjie Ko MD, [facility] 03/03/18 0859 0859Benjie Ko MD, FACC /INF
--- NOTE | 2018-03-03 11:11 | CARD ---
[address] [address] CARDIAC CATH REPORT Name: DAFNE WEI Room: 228P ADM IN .R.#: [id number] Admission: 02/26/18 Attend Phys: Rafael Noland MD Discharge: Date of : 55 Report #: [id number] THIS REPORT FOR: //name// APPROVED REPORT Study performed: 03/03/2018 09:30:02 Patient Details Patient Status: In-Patient Room #: 228 The patient is a 62 year-old female Event Personnel Benjie Ko Sour Bleaching Pleater, Claudia Shah RN Organ Tuner Electronic, Renny Quinn (R) Monitor, Thelma Longoria Scrub Procedures Performed ROSEY Place w/wo Plasty Single CIRC Indication Abnormal ECG, Positive stress test, Chest pain Risk Factors Arterial Hypertension, Hypercholesterolemia Previous Procedures/Diagnoses Previous PCI Admission/Lab Medications/Medications given during procedure Heparin Unfract. Procedure Narrative The patient was brought electively to the Cardiac Catheterization Laboratory and was prepped and draped in a sterile manner. The right wrist was infiltrated with 1% Lidocaine subcutaneous anesthesia. A Slender Glidesheath sheath was inserted into the right radial artery. Coronary angiography was performed using coronary diagnostic catheters. The left coronary system was accessed and visualized with a Guide 6FR XB 3.0 100CM catheter. Left ventricular/Aortic Valve gradient assessed via catheter pullback. Closure device was deployed with a 6 Fr Vasc-Band Reg 24cm. The patient tolerated the procedure well and there were no complications associated with the procedure. There was no hematoma. Aortic valve was crossed with a 6 fr JR4 catheter. An arteriogram of the RCA was not performed since it had [place] [address] CARDIAC CATH REPORT Name: DAFNE WEI Room: [address]#: [id number] Admission: 02/26/18 Attend Phys: Rafael Noland MD Discharge: Date of : 55 Report #: [id number] Intraoperative Conscious Sedation Sedation start time: 10:01 Case end Time: 10:31 Versed 2 mg Fluoro Time: 5.3 minutes Dose: DAP 83238 cGycm2 644 mGy Contrast Type and Amount: Visipaque 45 ml Coronary Angiography The patient's coronary anatomy is right dominant. Diagnostic Cath Left Main 0% stenosis LAD 30% proximal stenosis. The long stent after the 3rd diagonal branch had 0% stenosis Diagonal 3 90% ostial stenosis OM2 90% long stenosis Right Coronary not assessed Left Ventriculography Left Ventriculography was not performed. Hemodynamics The aortic pressure is 101/58 mmHg with a mean of 74 mmHg. The left ventricular pressure is 109/10 mmHg with a mean of mmHg. The left ventricular end diastolic pressure is 11 mmHg. There was no gradient across the aortic valve upon pullback. Pullback from the left ventricle to the aorta revealed no gradient across the aortic valve. PCI Technique Lesion Anticoagulation was achieved with Heparin. Patient was preloaded with Brillinta. Percutaneous coronary intervention was performed on the second obtuse marginal branch segment. The lesion stenosis prior to intervention was 90% with LUKE 3 flow. A 6FR XB 3.0 100CM Guide Catheter was used to engage the lm ostium. A IG: BMW 190cm Interventional Guidewire was used to cross the lesion. BALLOON DILATION A Balloon catheter Trek RX 2.5 X 15 was inserted and inflated up to 12.00atm for 19seconds. Repeat angiography revealed the following post-dilatation results: 70% stenosis. Additional Inflation: 12.00atm for 13seconds. [place] [address] CARDIAC CATH REPORT Name: DAFNE WEI Room: [address] IN [facility].#: [id number] Admission: 02/26/18 Attend Phys: Rafael Noland MD Discharge: Date of : 55 Report #: [id number] STENT DEPLOYMENT A pmde-rmhkcvigerb-hthylpr stent [place] RX Stent 2.5X30mm was inserted and inflated up to 14.00atm for 20seconds. Repeat angiography revealed the following post-stent deployment results: 0% stenosis. Additional Inflation: 18.00atm for 20seconds. Additional Inflation: 20.00atm for 20seconds. Final angiography reveals 0 % stenosis with LUKE 3 flow. Conclusion 1. no restenosis of stent noted in mid lad 2. successful placement of a drug eluting stent in the 2nd marginal branch of the circumflex Recommendations Cardiac Rehabilitation Referral Aggressive Medical Therapy <ELECTRONICALLY SIGNED> By: Benjie Ko MD, FACC 03/03/18 1111 1111 1111Davijordan Ko MD, FACC /INF
--- NOTE | 2018-03-03 16:37 | EKG ---
[place] [address] ELECTROCARDIOGRAM REPORT Name: DAFNE WEI Room: [address] ADM IN M.R.#: [id number] Admission: 02/26/18 Attend Phys: Rafael Noland MD Discharge: Date of : 55 Report #: [id number] THIS REPORT FOR: //name// [facility] Test Date: 2018-03-03 Test Time: 09:22:30 Pat Name: DAFNE WEI Department: Room: [address] Gender: F Assistant Center Manager: : 1955 Requested By: Ed Mancera Order Number: [id number] Reading MD: Benjie Ko Measurements Intervals [place] Rate: 61 P: 52 [place]: 149 QRS: 23 QRSD: 94 T: 45 QT: 452 QTc: 456 Interpretive Statements Sinus rhythm Abnormal R-wave progression, early transition Compared to ECG 03/02/2018 10:15:52 No significant changes Electronically Signed On 03-03-2018 16:37:26 WAFER SLICER by Benjie Ko [email or web address] <ELECTRONICALLY SIGNED> By: Benjie Ko MD, [facility] 03/03/18 1637 1 1 Benjie Ko MD, [facility] /EPI
--- NOTE | 2018-03-03 16:40 | EKG ---
[place] [address] ELECTROCARDIOGRAM REPORT Name: DENA WEIINE Room: [address] ADM IN M.R.#: [id number] Admission: 02/26/18 Attend Phys: Rafael Noland MD Discharge: Date of : 55 Report #: [id number] THIS REPORT FOR: //name// [facility] Test Date: 2018-03-03 Test Time: 11:35:05 Pat Name: DAFNE WEI Department: Room: [address] Gender: F Farmworker Dairy: : 1955 Requested By: Benjie Ko Order Number: [id number] Reading MD: Benjie Ko Measurements Intervals [place] Rate: 47 P: [place]: QRS: 30 QRSD: 99 T: 43 QT: 508 QTc: 450 Interpretive Statements sinus bradycardia Electronically Signed On 03-03-2018 16:40:35 WRAP KNITTING MACHINE OPERATOR by Benjie Ko [email or web address] <ELECTRONICALLY SIGNED> By: Benjie Ko MD, [facility] 03/03/18 1640 1135 1135 Benjie Ko MD, FACC /EPI
--- NOTE | 2018-03-03 17:14 | NUR ---
PT.HAD ANOTHER CARDIAC CATH TODAY WITH STENT PLACEMENT. POSSIBILITY OF DISCHARGE TOMORROW. PT.SLEEPING, DID NOT AWAKEN
[2018-03-04] VITALS: BP 135/50
[2018-03-04 04:00] VITALS: BP 126/69
[2018-03-04 04:47] LABS: HEMATOCRIT 35.8 % (37.0-47.0); HEMOGLOBIN 11.9 gm/dL (12.0-15.0); MCH 31.2 pg (26.0-34.0); MCHC 33.4 g/dL (28.0-37.0); MCV 93.3 fL (80.0-100.0); MPV 7.1 fl. (7.2-11.1); RBC 3.83 mil/uL (4.20-5.00); RDW-CV 13.6 % (10.5-14.5); WBC 7.4 thou/uL (4.0-11.0)
[2018-03-04 05:03] LABS: CALCIUM 8.9 mg/dL (8.5-10.1); CREATININE 1.5 mg/dL (0.6-1.3); POTASSIUM 4.4 mmol/L (3.5-5.1); TROPONIN-I LEVEL 0.07 ng/mL (<0.06)
--- NOTE | 2018-03-04 06:32 | NUR ---
PATIENT RESTED IN BED, NO ACUTE CHANGES. PATIENT DID NOT SHOW SIGNS OF DISTRSS. FALL PRECAUTIONS IN PLACE, CALL LIGHT WITH IN REACH, HOURLY ROUNDING OBSERVED.
[2018-03-04 08:27] VITALS: BP 116/70
[2018-03-04 11:49] VITALS: BP 97/77
--- NOTE | 2018-03-04 15:02 | EKG ---
[place] [address] ELECTROCARDIOGRAM REPORT Name: DAFNE WEI Room: [address] ADM IN M.R.#: [id number] Admission: 02/26/18 Attend Phys: Rafael Noland MD Discharge: Date of : 55 Report #: [id number] THIS REPORT FOR: //name// [facility] Test Date: 2018-03-04 Test Time: 08:50:35 Pat Name: DAFNE WEI Department: Room: [address] Gender: F Fisheries Biologist: : 1955 Requested By: Benjie Ko Order Number: [id number] Lio MD: Benjie Ko Measurements Intervals [place] Rate: 60 P: -58 [place]: 132 QRS: 35 QRSD: 93 T: 55 QT: 432 QTc: 432 Interpretive Statements Ectopic atrial rhythm Abnormal R-wave progression, early transition Compared to ECG 03/03/2018 11:35:05 bradycardia no longer present Electronically Signed On 03-04-2018 15:02:33 STICKER ON by Benjie Ko [email or web address] <ELECTRONICALLY SIGNED> By: Benjie Ko MD, [facility] 03/04/18 1502 Benjie Ko MD, [facility] /EPI
[2018-03-04 16:00] VITALS: BP 133/64
--- NOTE | 2018-03-04 19:02 | NUR ---
PT'S GUARDIAN TOOK [place] SAMPLES FOR PT HOME.
[2018-03-04 20:00] VITALS: BP 129/58
[2018-03-05] VITALS: BP 143/67
[2018-03-05 04:00] VITALS: BP 127/61
--- NOTE | 2018-03-05 05:58 | NUR ---
PATIENT PROGRESSING TOWARDS GOALS AND ANITICIPATING DISCHARGE TODAY: PATIENT DENIES CHEST PAIN THIS SHIFT. BLOOD SUGARS IMPROVED. IVF INFUSING PER ORDERS. HOURLY ROUNDING OBSERVED. CALL LIGHT WITHIN REACH
[2018-03-05 08:23] VITALS: BP 147/75
[2018-03-05 09:43] LABS: CREATININE 1.1 mg/dL (0.6-1.3)
[2018-03-05 09:49] LABS: CALCIUM 6.9 mg/dL (8.5-10.1)
--- NOTE | 2018-03-05 10:28 | NUR ---
DR. ACEVES ASSESSED RIGHT RADIAL ARTERY CATH SITE. DR. ACEVES INSTRUCTS THAT SITE IS INTACT WITH PALPABLE 2 PLUSE PULSE, CAPILLARY REFILL IS LESS THAN 3 SECONDS AND FINGERS AND HAND ARM WARM TO THE TOUCH. PT HAS TINY HEMATOMA AT SITE AND INSTRUCTED TO KEEP ARM ELEVATED AND CLEAN AND DRY. PT OK TO GO HOME FROM DR. GILES STAND POINT. WILL CONTINUE TO ASSESS.
[2018-03-05] MEDS ORDERED: ATORVASTATIN CA40 MG PO (11:39)
[2018-03-05] MEDS ORDERED: LOPRESSOR25 PO (11:40)
[2018-03-05 11:57] VITALS: BP 105/58
[2018-03-05 13:04] VITALS: BP 134/78
[2018-03-05] MEDS ORDERED: BRILINTA90 MG PO (13:58)
--- NOTE | 2018-03-05 14:26 | NUR ---
DISCONTINUE IV AND TELE. PT AND NIECE UNDERSTAND ALL FOLLOW UP ORDERS. WILL DISCHARGE TO HOME.
== END 2018-03-05 14:39 | disposition home or self-care (01) | DRG 246 ==
LOC: M.ERS 22:20 → M.TBA-ER 23:15 → M.2W 23:15
PROVIDERS: Emergency Medicine; Internal Medicine; Internal Medicine Cardiovascular Disease; ADMIT Internal Medicine
PROC: 027034Z Dilation of Coronary Artery, One Artery with Drug-eluting Intraluminal Device, Percutaneous Approach (ICD-10-PCS; principal; 2018-03-02)
PROC: 027035Z Dilation of Coronary Artery, One Artery with Two Drug-eluting Intraluminal Devices, Percutaneous Approach (ICD-10-PCS; principal; 2018-03-02)
PROC: B211YZZ Fluoroscopy of Multiple Coronary Arteries using Other Contrast (ICD-10-PCS; principal; 2018-03-02)
PROC: 4A023N7 Measurement of Cardiac Sampling and Pressure, Left Heart, Percutaneous Approach (ICD-10-PCS; principal; 2018-03-02)
PROC: 4A023N7 Measurement of Cardiac Sampling and Pressure, Left Heart, Percutaneous Approach (ICD-10-PCS; 2018-03-03)
PROC: B211YZZ Fluoroscopy of Multiple Coronary Arteries using Other Contrast (ICD-10-PCS; 2018-03-03)
DX: I21.4 Non-ST elevation (NSTEMI) myocardial infarction (principal); N17.0 Acute kidney failure with tubular necrosis; I50.32 Chronic diastolic (congestive) heart failure; I13.0 Hypertensive heart and chronic kidney disease with heart failure and stage 1 through stage 4 chronic kidney disease, or unspecified chronic kidney disease; E05.90 Thyrotoxicosis, unspecified without thyrotoxic crisis or storm; N18.3 Chronic kidney disease, stage 3 (moderate); E11.22 Type 2 diabetes mellitus with diabetic chronic kidney disease; I25.10 Atherosclerotic heart disease of native coronary artery without angina pectoris; Z88.2 Allergy status to sulfonamides; Z79.4 Long term (current) use of insulin; Q90.9 Down syndrome, unspecified; Z82.49 Family history of ischemic heart disease and other diseases of the circulatory system; Z79.82 Long term (current) use of aspirin; Z79.899 Other long term (current) drug therapy; Z28.21 Immunization not carried out because of patient refusal

== ENCOUNTER 2018-03-10 13:25 | Emergency (ER) | payer MEDICARE ==
[~2018-03-10] VITALS: Ht 157.5 cm; Wt 64.0 kg
[~2018-03-10 13:25] MED LIST changes: +ATORVASTATIN CA40 MG PO; +BRILINTA90 MG PO; +LOPRESSOR25 PO
[2018-03-10] MEDS ORDERED: NOVOLOG100 UNIT/1 SUBQ (13:38)
[2018-03-10 14:48] LABS: ABSOLUTE LYMPHOCYTES 0.9 thou/uL (0.8-5.3); ABSOLUTE MONOCYTES 0.3 thou/uL (0.0-1.2); BASOPHILS 0.2 %; EOSINOPHILS 0.6 %; HEMATOCRIT 37.3 % (37.0-47.0); HEMOGLOBIN 12.3 gm/dL (12.0-15.0); LYMPHOCYTES 10.4 %; MCH 30.7 pg (26.0-34.0); MONOCYTES 4.1 %; MPV 6.7 fl. (7.2-11.1); NUCLEATED RBCS 0 /100WBC; PLATELET COUNT* 315 thou/uL (150-400); POLYS 84.7 %; RBC 4.01 mil/uL (4.20-5.00); WBC 8.2 thou/uL (4.0-11.0)
[2018-03-10 14:54] LABS: ANION GAP 8 mmol/L (7-16); BUN 29 mg/dL (7-18); CALCIUM 9.2 mg/dL (8.5-10.1); CHLORIDE 102 mmol/L (98-107); CO2 28 mmol/L (21-32); CREATININE 1.5 mg/dL (0.6-1.3); GLUCOSE 201 mg/dL (70-99); POTASSIUM 4.5 mmol/L (3.5-5.1); SODIUM 138 mmol/L (136-145)
[2018-03-10 14:56] LABS: APTT 26.6 Seconds (25.0-31.3); PROTIME 9.8 Seconds (9.20-11.50)
[2018-03-10 15:05] LABS: ALBUMIN 3.1 g/dL (3.4-5.0); ALKALINE PHOSPHATASE 97 U/L (46-116); NT-PRO BRAIN NAT PEPTIDE 179 pg/mL (<300); SGOT 16 U/L (15-37); SGPT 23 U/L (30-65); TOTAL BILIRUBIN 0.4 mg/dL (<0.1-1.0); TOTAL PROTEIN 7.2 g/dL (6.4-8.2); TROPONIN-I LEVEL <0.06 ng/mL (<0.06)
[2018-03-10 15:49] VITALS: BP 123/54
--- NOTE | 2018-03-10 17:39 | EKG ---
[place] [address] ELECTROCARDIOGRAM REPORT Name: DAFNE WEI Amarilis Room: [facility]#: [id number] Admission: 03/10/18 Attend Phys: Discharge: 03/10/18 Date of : 55 Report #: [id number] THIS REPORT FOR: //name// [facility] ED Test Date: 2018-03-10 Test Time: 13:31:02 Pat Name: DAFNE WEI Department: Room: Gender: F Diazo Technician: CARLOS : 1955 Requested By: Valentina Arana Order Number: [id number] MD: Benjie Ko Measurements Intervals [place] Rate: 51 P: -31 SC: 148 QRS: 45 QRSD: 86 T: 79 QT: 459 QTc: 423 Interpretive Statements Sinus bradycardia Abnormal R-wave progression, early transition Compared to ECG 03/04/2018 08:50:35 rate slowed Electronically Signed On 03-10-2018 17:39:16 PRODUCTION ENGINE REPAIRER by Benjie Ko [email or web address] <ELECTRONICALLY SIGNED> By: Benjie Ko MD, [facility] 03/10/18 1739 D: 11/1330 30 Benjie Ko MD, FACC /EPI
== END 2018-03-10 15:49 | disposition home or self-care (01) ==
LOC: M.ERS 13:25
PROVIDERS: Personal Emergency Response Attendant
DX: I20.8 Other forms of angina pectoris (principal); I10 Essential (primary) hypertension; E11.9 Type 2 diabetes mellitus without complications; Z90.49 Acquired absence of other specified parts of digestive tract; Z95.5 Presence of coronary angioplasty implant and graft; Z88.2 Allergy status to sulfonamides

== ENCOUNTER 2018-04-19 16:39 | Emergency (ER) | payer MEDICARE ==
[~2018-04-19] VITALS: Ht 152.4 cm; Wt 59.0 kg
[2018-04-19 17:23] LABS: ABSOLUTE LYMPHOCYTES 0.8 thou/uL (0.8-5.3); ABSOLUTE MONOCYTES 0.4 thou/uL (0.0-1.2); ABSOLUTE NEUTROPHILS 6.1 thou/uL (1.6-8.1); BASOPHILS 0.5 %; EOSINOPHILS 0.2 %; HEMATOCRIT 36.6 % (37.0-47.0); HEMOGLOBIN 12.4 gm/dL (12.0-15.0); LYMPHOCYTES 10.6 %; MCH 31.9 pg (26.0-34.0); MCV 93.9 fL (80.0-100.0); MONOCYTES 4.9 %; MPV 6.8 fl. (7.2-11.1); NUCLEATED RBCS 0 /100WBC; PLATELET COUNT* 237 thou/uL (150-400); POLYS 83.8 %; RDW-CV 14.4 % (10.5-14.5); WBC 7.3 thou/uL (4.0-11.0)
[2018-04-19 17:35] LABS: ANION GAP 8 mmol/L (7-16); BUN 25 mg/dL (7-18); CALCIUM 9.7 mg/dL (8.5-10.1); CHLORIDE 103 mmol/L (98-107); CO2 27 mmol/L (21-32); CREATININE 1.4 mg/dL (0.6-1.3); GLUCOSE 105 mg/dL (70-99); POTASSIUM 4.1 mmol/L (3.5-5.1); SODIUM 138 mmol/L (136-145)
[2018-04-19 17:44] LABS: PROTIME 9.8 Seconds (9.20-11.50)
[2018-04-19 17:46] LABS: ALBUMIN 3.4 g/dL (3.4-5.0); ALKALINE PHOSPHATASE 106 U/L (46-116); NT-PRO BRAIN NAT PEPTIDE 101 pg/mL (<300); SGOT 18 U/L (15-37); SGPT 29 U/L (30-65); TOTAL BILIRUBIN 0.4 mg/dL (<0.1-1.0); TOTAL PROTEIN 7.9 g/dL (6.4-8.2); TROPONIN-I LEVEL <0.06 ng/mL (<0.06)
[2018-04-19 20:42] LABS: URINE BILIRUBIN NEGATIVE (Negative); URINE BLOOD TRACE (Negative); URINE CLARITY CLEAR; URINE COLOR YELLOW; URINE GLUCOSE-RANDOM NEGATIVE (Negative); URINE KETONES NEGATIVE (Negative); URINE LEUKOCYTES-REFLEX 1+ (Negative); URINE NITRITE-REFLEX NEGATIVE (Negative); URINE PROTEIN NEGATIVE (Negative); URINE SPECIFIC GRAVITY 1.015 (1.005-1.030); URINE UROBILINOGEN 0.2 E.U./dl (0.2-1.0)
[2018-04-19 20:48] LABS: BACTERIA-REFLEX >30 Many /HPF (None Seen); SQUAMOUS >10 Many /LPF (0-3)
[2018-04-19 20:49] LABS: CASTS None Seen /LPF (None Seen); CRYSTALS None Seen /LPF (None Seen); MUCUS None Seen strn/LPF (None Seen); URINE RBC 0-2 Rare /HPF (0-2)
[2018-04-19] MEDS ORDERED: MACROBID 100 M100 M1 PO (22:34)
[2018-04-19 23:07] VITALS: BP 102/52
--- NOTE | 2018-04-21 11:16 | EKG ---
[place] [address] ELECTROCARDIOGRAM REPORT Name: SANJUANADAFNE Amarilis Room: [facility]#: [id number] Admission: 04/19/18 Attend Phys: Discharge: 04/19/18 Date of : 55 Report #: [id number] THIS REPORT FOR: //name// [facility] ED Test Date: 2018-04-19 Test Time: 16:51:55 Pat Name: DAFNE WEI Department: Room: Gender: F Software Sales Executive: Phani SCANLON : 1955 Requested By: Cm Mckenzie Order Number: [id number] MD: Benjie Ko Measurements Intervals [place] Rate: 58 P: -49 ME: 136 QRS: 23 QRSD: 96 T: 37 QT: 440 QTc: 433 Interpretive Statements Sinus or ectopic atrial rhythm Abnormal R-wave progression, early transition Compared to ECG 03/10/2018 13:31:02 no change Electronically Signed On 04-21-2018 11:16:34 UNIT MANAGER CONVENIENCE STORES by Benjie Ko [email or web address] <ELECTRONICALLY SIGNED> By: Benjie Ko MD, [facility] 04/21/18 1116 50 50 Benjie Ko MD, FACC /EPI
== END 2018-04-19 23:14 | disposition home or self-care (01) ==
LOC: M.ERS 16:39
PROVIDERS: Family Medicine
DX: R42 Dizziness and giddiness (principal); R19.7 Diarrhea, unspecified; R11.10 Vomiting, unspecified; E11.9 Type 2 diabetes mellitus without complications; I10 Essential (primary) hypertension; G80.9 Cerebral palsy, unspecified; Z86.2 Personal history of diseases of the blood and blood-forming organs and certain disorders involving the immune mechanism; Z90.49 Acquired absence of other specified parts of digestive tract; Z95.5 Presence of coronary angioplasty implant and graft; Z79.4 Long term (current) use of insulin; Z88.2 Allergy status to sulfonamides; Z98.890 Other specified postprocedural states

== ENCOUNTER 2018-05-04 22:04 | Emergency (ER) | payer MEDICARE ==
[~2018-05-04] VITALS: Ht 152.4 cm; Wt 61.7 kg
[~2018-05-04 22:04] MED LIST changes: +MACROBID 100 M100 M1 PO
[2018-05-04] MEDS ORDERED: KEFLEX500 M1 PO (22:33)
[2018-05-04 23:07] VITALS: BP 140/56
== END 2018-05-04 23:11 | disposition home or self-care (01) ==
LOC: M.ERS 22:04
DX: L89.229 Pressure ulcer of left hip, unspecified stage (principal); L03.116 Cellulitis of left lower limb; E11.9 Type 2 diabetes mellitus without complications; I10 Essential (primary) hypertension; Z88.2 Allergy status to sulfonamides; Z79.4 Long term (current) use of insulin; Z86.2 Personal history of diseases of the blood and blood-forming organs and certain disorders involving the immune mechanism; Z90.49 Acquired absence of other specified parts of digestive tract; Z95.5 Presence of coronary angioplasty implant and graft

== ENCOUNTER → 2018-05-10 | Outpatient (CLI) | payer MEDICARE ==
[~2018-05-10] MED LIST changes: +KEFLEX500 M1 PO
== END ==
LOC: M.WC 10:00
DX: E11.622 Type 2 diabetes mellitus with other skin ulcer (principal); L89.220 Pressure ulcer of left hip, unstageable; L98.492 Non-pressure chronic ulcer of skin of other sites with fat layer exposed; G80.9 Cerebral palsy, unspecified; I10 Essential (primary) hypertension; Z90.49 Acquired absence of other specified parts of digestive tract; Z95.5 Presence of coronary angioplasty implant and graft; Z79.4 Long term (current) use of insulin; Z79.82 Long term (current) use of aspirin

== ENCOUNTER → 2018-05-17 | Outpatient (CLI) | payer MEDICARE | LOC: M.WC 04:35 | DX: E11.622 Type 2 diabetes mellitus with other skin ulcer (principal); L89.220 Pressure ulcer of left hip, unstageable; L98.492 Non-pressure chronic ulcer of skin of other sites with fat layer exposed; G80.9 Cerebral palsy, unspecified; I10 Essential (primary) hypertension ==

== ENCOUNTER → 2018-05-24 | Outpatient (CLI) | payer MEDICARE | LOC: M.WC 00:18 | DX: E11.622 Type 2 diabetes mellitus with other skin ulcer (principal); L89.220 Pressure ulcer of left hip, unstageable; L98.492 Non-pressure chronic ulcer of skin of other sites with fat layer exposed; G80.9 Cerebral palsy, unspecified; I10 Essential (primary) hypertension ==

== ENCOUNTER → 2018-06-01 | Outpatient (CLI) | payer MEDICARE | LOC: M.WC 05-31 10:00 | DX: E11.622 Type 2 diabetes mellitus with other skin ulcer (principal); L89.223 Pressure ulcer of left hip, stage 3; L98.492 Non-pressure chronic ulcer of skin of other sites with fat layer exposed; G80.9 Cerebral palsy, unspecified; I10 Essential (primary) hypertension ==

== ENCOUNTER → 2018-06-08 | Outpatient (CLI) | payer MEDICARE | LOC: M.WC 06-07 10:00 | DX: E11.622 Type 2 diabetes mellitus with other skin ulcer (principal); L89.223 Pressure ulcer of left hip, stage 3; L98.492 Non-pressure chronic ulcer of skin of other sites with fat layer exposed; G80.9 Cerebral palsy, unspecified; I10 Essential (primary) hypertension ==

== ENCOUNTER → 2018-06-15 | Outpatient (CLI) | payer MEDICARE | LOC: M.WC 05:46 | DX: E11.622 Type 2 diabetes mellitus with other skin ulcer (principal); L89.223 Pressure ulcer of left hip, stage 3; L98.492 Non-pressure chronic ulcer of skin of other sites with fat layer exposed; G80.9 Cerebral palsy, unspecified; I10 Essential (primary) hypertension ==

== ENCOUNTER → 2018-06-28 | Outpatient (CLI) | payer MEDICARE | LOC: M.WC 00:49 | DX: E11.622 Type 2 diabetes mellitus with other skin ulcer (principal); L89.223 Pressure ulcer of left hip, stage 3; L98.492 Non-pressure chronic ulcer of skin of other sites with fat layer exposed; G80.9 Cerebral palsy, unspecified; I10 Essential (primary) hypertension ==

== ENCOUNTER 2018-07-05 10:09 | Emergency (ER) | payer MEDICARE ==
[~2018-07-05] VITALS: Ht 157.5 cm; Wt 70.0 kg
[2018-07-05 10:42] LABS: ABSOLUTE EOSINOPHILS 0.1 thou/uL (0.0-0.7); ABSOLUTE LYMPHOCYTES 1.1 thou/uL (0.8-5.3); ABSOLUTE MONOCYTES 0.5 thou/uL (0.0-1.2); ABSOLUTE NEUTROPHILS 6.3 thou/uL (1.6-8.1); BASOPHILS 0.2 %; EOSINOPHILS 1.7 %; HEMATOCRIT 35.6 % (37.0-47.0); HEMOGLOBIN 11.8 gm/dL (12.0-15.0); LYMPHOCYTES 13.7 %; MCH 31.6 pg (26.0-34.0); MCHC 33.1 g/dL (28.0-37.0); MCV 95.3 fL (80.0-100.0); MONOCYTES 6.3 %; MPV 7.3 fl. (7.2-11.1); NUCLEATED RBCS 0 /100WBC; PLATELET COUNT* 235 thou/uL (150-400); POLYS 78.1 %; RBC 3.74 mil/uL (4.20-5.00); RDW-CV 14.4 % (10.5-14.5)
[2018-07-05 11:08] LABS: ALBUMIN 3.1 g/dL (3.4-5.0); ALKALINE PHOSPHATASE 106 U/L (46-116); ANION GAP 8 mmol/L (7-16); BUN 24 mg/dL (7-18); CALCIUM 9.6 mg/dL (8.5-10.1); CHLORIDE 102 mmol/L (98-107); CO2 28 mmol/L (21-32); CREATININE 1.8 mg/dL (0.6-1.3); GLUCOSE 272 mg/dL (70-99); POTASSIUM 4.1 mmol/L (3.5-5.1); SGOT 13 U/L (15-37); SGPT 21 U/L (30-65); SODIUM 138 mmol/L (136-145); TOTAL BILIRUBIN 0.5 mg/dL (<0.1-1.0); TOTAL PROTEIN 7.2 g/dL (6.4-8.2); TROPONIN-I LEVEL <0.06 ng/mL (<0.06)
--- NOTE | 2018-07-05 13:57 | EKG ---
[place] [address] ELECTROCARDIOGRAM REPORT Name: SANJUANADAFNE Amarilis Room: [facility]#: [id number] Admission: 07/05/18 Attend Phys: Discharge: Date of : 55 Report #: [id number] THIS REPORT FOR: //name// [facility] ED Test Date: 2018-07-05 Test Time: 10:35:25 Pat Name: DAFNE WEI Department: Room: Gender: F Scow Hand: : 1955 Requested By: Silas Simon Order Number: [id number] MD: Benjie Ko Measurements Intervals [place] Rate: 63 P: [place]: QRS: 79 QRSD: 90 T: 76 QT: 435 QTc: 446 Interpretive Statements Junctional rhythm Abnormal R-wave progression, early transition Compared to ECG 04/19/2018 16:51:55 Junctional rhythm now present Electronically Signed On 07-05-2018 13:57:23 CDT by Benjie Ko [email or web address] <ELECTRONICALLY SIGNED> By: Benjie Ko MD, [facility] 07/05/18 1357 1035 1035 Benjie Ko MD, FACC /EPI
[2018-07-05 14:23] VITALS: BP 114/54
== END 2018-07-05 14:56 | disposition home or self-care (01) ==
LOC: M.ERS 10:09
PROVIDERS: Emergency Medicine Emergency Medical Services
DX: T38.3X1A Poisoning by insulin and oral hypoglycemic [antidiabetic] drugs, accidental (unintentional), initial encounter (principal); I10 Essential (primary) hypertension; E11.9 Type 2 diabetes mellitus without complications; Z95.5 Presence of coronary angioplasty implant and graft; Z90.49 Acquired absence of other specified parts of digestive tract; Z86.2 Personal history of diseases of the blood and blood-forming organs and certain disorders involving the immune mechanism; Z88.2 Allergy status to sulfonamides; Y92.89 Other specified places as the place of occurrence of the external cause

== ENCOUNTER → 2018-07-06 | Outpatient (CLI) | payer MEDICARE ==
--- NOTE | 2018-07-08 15:07 | PATH ---
[address] [address] PATHOLOGY RPT PROCEDURE Name: DAFNE RUTLEDGE Room: [facility]#: [id number] Admission: 07/06/18 Date of : 55 Discharge: Report #: [id number] Path Case #: [id number] [facility] Accession Number: [id number] . 01 Material submitted: . RIGHT HIP . 01 Clinical history: . None provided . 02 Diagnosis: Fibroadipose tissue, "right hip biopsy": - Most of the fragments are necrotic non-viable with areas of fat necrosis. - A minute fragment of viable tissue reveals chronic inflammation associated with fat necrosis. . (SHA:mml; 07/08/2018) QLM/07/08/2018 . 02 Electronically signed: . Negro Garcia MD, Pathologist NPI- [id number] . 01 Gross description: . The specimen is received in formalin, labeled "Dafne Rutledge, right hip biopsy". Received are two irregular segments of pale dinh possible skin measuring 0.9 x 0.4 x 0.1 and 1.2 x 0.3 x 0.1 cm in greatest dimensions. The surgical margins are inked and each segment is bisected. The specimen is submitted entirely in cassette A1. (CAA; 07/07/2018) QAC/QAC . 02 Pathologist provided ICD-10: M79.89, L98.8 . 02 CPT . 957104 Specimen Comment: A courtesy copy of this report has been sent to Specimen Comment: [phone], . Specimen Comment: Report sent to / DR DAVE Performed at: [address] [id number] MD Pio Cotton MD Phone: [phone] Performed at: [address] [place], [place] [id number] [place] [address] PATHOLOGY RPT PROCEDURE Name: DAFNE RUTLEDGE Room: [facility] KJ Braxton#: [id number] Admission: 07/06/18 Date of : 55 Discharge: Report #: [id number] Path Case #: [id number] MD Jasvir Pascual MD Phone: [phone]
== END ==
LOC: M.WC 07-05 00:53
DX: E11.622 Type 2 diabetes mellitus with other skin ulcer (principal); L89.223 Pressure ulcer of left hip, stage 3; L98.492 Non-pressure chronic ulcer of skin of other sites with fat layer exposed; G80.9 Cerebral palsy, unspecified; I10 Essential (primary) hypertension

== ENCOUNTER → 2018-07-12 | Outpatient (CLI) | payer MEDICARE | LOC: M.WC 04:35 | DX: E11.622 Type 2 diabetes mellitus with other skin ulcer (principal); L89.223 Pressure ulcer of left hip, stage 3; L98.492 Non-pressure chronic ulcer of skin of other sites with fat layer exposed; G80.9 Cerebral palsy, unspecified; I10 Essential (primary) hypertension ==

== ENCOUNTER → 2018-07-19 | Outpatient (CLI) | payer MEDICARE | LOC: M.WC 01:07 | DX: E11.622 Type 2 diabetes mellitus with other skin ulcer (principal); L89.223 Pressure ulcer of left hip, stage 3; L98.492 Non-pressure chronic ulcer of skin of other sites with fat layer exposed; I10 Essential (primary) hypertension; G80.9 Cerebral palsy, unspecified ==

== ENCOUNTER → 2018-07-26 | Outpatient (CLI) | payer MEDICARE | LOC: M.WC 00:59 | DX: E11.622 Type 2 diabetes mellitus with other skin ulcer (principal); L89.223 Pressure ulcer of left hip, stage 3; L98.492 Non-pressure chronic ulcer of skin of other sites with fat layer exposed; G80.9 Cerebral palsy, unspecified; I10 Essential (primary) hypertension ==

== ENCOUNTER 2018-08-08 22:50 | Emergency (ER) | payer MEDICARE ==
[~2018-08-08] VITALS: Ht 154.9 cm; Wt 66.0 kg
[2018-08-09 00:05] LABS: INFLUENZA A ANTIGEN None Detected (None Detect); INFLUENZA B ANTIGEN None Detected (None Detect)
[2018-08-09] MEDS ORDERED: LEVAQUIN 750 M750 MG PO (00:18)
[2018-08-09 00:27] VITALS: BP 157/64
== END 2018-08-09 00:27 | disposition home or self-care (01) ==
LOC: M.ERS 22:50
PROVIDERS: Emergency Medicine
DX: J18.9 Pneumonia, unspecified organism (principal); I10 Essential (primary) hypertension; E11.9 Type 2 diabetes mellitus without complications; Z88.2 Allergy status to sulfonamides; Z86.2 Personal history of diseases of the blood and blood-forming organs and certain disorders involving the immune mechanism; Z90.49 Acquired absence of other specified parts of digestive tract; Z95.5 Presence of coronary angioplasty implant and graft; Z79.4 Long term (current) use of insulin

== ENCOUNTER 2018-08-09 15:18 | Emergency (ER) | payer MEDICARE ==
[~2018-08-09] VITALS: Ht 154.9 cm; Wt 65.8 kg
[~2018-08-09 15:18] MED LIST changes: +LEVAQUIN 750 M750 MG PO
[2018-08-09 16:22] LABS: HEMATOCRIT 31.4 % (37.0-47.0); HEMOGLOBIN 10.8 gm/dL (12.0-15.0); MCH 32.3 pg (26.0-34.0); MCHC 34.3 g/dL (28.0-37.0); MPV 6.7 fl. (7.2-11.1); NUCLEATED RBCS 0 /100WBC; PLATELET COUNT* 256 thou/uL (150-400); RBC 3.34 mil/uL (4.20-5.00); RDW-CV 14.2 % (10.5-14.5); WBC 9.9 thou/uL (4.0-11.0)
[2018-08-09 16:38] LABS: ANION GAP 7 mmol/L (7-16); BUN 25 mg/dL (7-18); CHLORIDE 102 mmol/L (98-107); CO2 28 mmol/L (21-32); CREATININE 1.8 mg/dL (0.6-1.3); GLUCOSE 176 mg/dL (70-99); POTASSIUM 4.7 mmol/L (3.5-5.1); SODIUM 137 mmol/L (136-145); TROPONIN-I LEVEL <0.06 ng/mL (<0.06)
[2018-08-09 16:39] LABS: ALBUMIN 2.9 g/dL (3.4-5.0); ALKALINE PHOSPHATASE 98 U/L (46-116); NT-PRO BRAIN NAT PEPTIDE 169 pg/mL (<300); SGOT 14 U/L (15-37); SGPT 21 U/L (30-65); TOTAL BILIRUBIN 0.4 mg/dL (<0.1-1.0); TOTAL PROTEIN 7.1 g/dL (6.4-8.2)
[2018-08-09 17:15] LABS: ABSOLUTE LYMPHOCYTES 0.3 thou/uL (0.8-5.3); ABSOLUTE NEUTROPHILS 9.6 thou/uL (1.6-8.1); PLATELET ESTIMATE ADEQUATE
[2018-08-09 18:38] VITALS: BP 128/65
--- NOTE | 2018-08-10 11:30 | EKG ---
[place] [address] ELECTROCARDIOGRAM REPORT Name: SANJUANADAFNE Amarilis Room: [facility]#: [id number] Admission: 08/09/18 Attend Phys: Discharge: 08/09/18 Date of : 55 Report #: [id number] THIS REPORT FOR: //name// [facility] ED Test Date: 2018-08-09 Test Time: 16:15:21 Pat Name: DAFNE WEI Department: Room: Gender: F Rn Unit Manager: : 1955 Requested By: Valentina Rodrigez Order Number: [id number] MD: John Paul Rebollar Measurements Intervals [place] Rate: 66 P: -16 [place]: 142 QRS: 41 QRSD: 80 T: 68 QT: 408 QTc: 428 Interpretive Statements Sinus rhythm Abnormal R-wave progression, early transition Compared to ECG 07/05/2018 10:35:25 Junctional rhythm no longer present Electronically Signed On 08-10-2018 11:29:54 CDT by John Paul Rebollar [email or web address] <ELECTRONICALLY SIGNED> By: John Paul Rebollar MD, [facility] 08/10/18 1129 1615 161 John Paul Rebollar MD, [facility] /EPI
== END 2018-08-09 18:39 | disposition home or self-care (01) ==
LOC: M.ERS 15:18
PROVIDERS: Physician Assistant
DX: J06.9 Acute upper respiratory infection, unspecified (principal); I10 Essential (primary) hypertension; E11.9 Type 2 diabetes mellitus without complications; Z95.5 Presence of coronary angioplasty implant and graft; Z88.2 Allergy status to sulfonamides; Z86.2 Personal history of diseases of the blood and blood-forming organs and certain disorders involving the immune mechanism; Z90.49 Acquired absence of other specified parts of digestive tract; Z79.4 Long term (current) use of insulin

== ENCOUNTER → 2018-08-10 | Outpatient (CLI) | payer MEDICARE | LOC: M.WC 08-09 02:54 | DX: E11.622 Type 2 diabetes mellitus with other skin ulcer (principal); L89.223 Pressure ulcer of left hip, stage 3; L98.491 Non-pressure chronic ulcer of skin of other sites limited to breakdown of skin; I10 Essential (primary) hypertension; G80.9 Cerebral palsy, unspecified ==

== ENCOUNTER → 2018-08-17 | Outpatient (CLI) | payer MEDICARE | LOC: M.WC 08-16 01:00 | DX: E11.622 Type 2 diabetes mellitus with other skin ulcer (principal); L89.223 Pressure ulcer of left hip, stage 3; L98.492 Non-pressure chronic ulcer of skin of other sites with fat layer exposed; I10 Essential (primary) hypertension; G80.9 Cerebral palsy, unspecified ==

== ENCOUNTER → 2018-08-24 | Outpatient (CLI) | payer MEDICARE | LOC: M.WC 04:48 | DX: E11.622 Type 2 diabetes mellitus with other skin ulcer (principal); L89.223 Pressure ulcer of left hip, stage 3; L98.496 Non-pressure chronic ulcer of skin of other sites with bone involvement without evidence of necrosis; G80.9 Cerebral palsy, unspecified; I10 Essential (primary) hypertension ==

== ENCOUNTER 2018-08-28 03:46 | Emergency (ER) | payer MEDICARE ==
[~2018-08-28] VITALS: Ht 154.9 cm; Wt 68.0 kg
[2018-08-28 04:13] LABS: ABSOLUTE EOSINOPHILS 0.1 thou/uL (0.0-0.7); ABSOLUTE LYMPHOCYTES 1.4 thou/uL (0.8-5.3); ABSOLUTE MONOCYTES 0.5 thou/uL (0.0-1.2); ABSOLUTE NEUTROPHILS 4.3 thou/uL (1.6-8.1); BASOPHILS 0.7 %; HEMATOCRIT 34.4 % (37.0-47.0); HEMOGLOBIN 11.7 gm/dL (12.0-15.0); LYMPHOCYTES 22.3 %; MCH 31.5 pg (26.0-34.0); MCHC 33.9 g/dL (28.0-37.0); MONOCYTES 7.6 %; MPV 7.5 fl. (7.2-11.1); NUCLEATED RBCS 0 /100WBC; PLATELET COUNT* 293 thou/uL (150-400); POLYS 67.4 %; RDW-CV 14.6 % (10.5-14.5); WBC 6.3 thou/uL (4.0-11.0)
[2018-08-28 04:59] LABS: ANION GAP 9 mmol/L (7-16); BUN 25 mg/dL (7-18); CHLORIDE 103 mmol/L (98-107); CO2 27 mmol/L (21-32); CREATININE 1.4 mg/dL (0.6-1.3); GLUCOSE 227 mg/dL (70-99); SODIUM 139 mmol/L (136-145)
[2018-08-28 05:03] LABS: APTT 27.2 Seconds (25.0-31.3); INR 0.9; PROTIME 9.7 Seconds (9.20-11.50)
[2018-08-28 05:10] LABS: ALBUMIN 2.8 g/dL (3.4-5.0); ALKALINE PHOSPHATASE 94 U/L (46-116); LIPASE 125 U/L (73-393); NT-PRO BRAIN NAT PEPTIDE 187 pg/mL (<300); SGOT 11 U/L (15-37); SGPT 24 U/L (30-65); TOTAL BILIRUBIN 0.3 mg/dL (<0.1-1.0); TROPONIN-I LEVEL <0.06 ng/mL (<0.06)
[2018-08-28 06:01] LABS: INFLUENZA A ANTIGEN None Detected (None Detect); INFLUENZA B ANTIGEN None Detected (None Detect)
[2018-08-28 07:59] VITALS: BP 128/55
--- NOTE | 2018-08-28 13:45 | EKG ---
[place] [address] ELECTROCARDIOGRAM REPORT Name: SANJUANADAFNE ANN [id number] Admission: 08/28/18 Attend Phys: Discharge: 08/28/18 Date of : 55 Report #: [id number] THIS REPORT FOR: //name// [facility] ED Test Date: 2018-08-28 Test Time: 03:55:18 Pat Name: DAFNE WEI Department: Room: Gender: F Research Assistant Member: Phani BROOKS : 1955 Requested By: Geno Beltran Order Number: [id number] MD: Benjie Ko Measurements Intervals [place] Rate: 69 P: -42 [place]: 139 QRS: 29 QRSD: 93 T: 36 QT: 414 QTc: 444 Interpretive Statements Sinus rhythm Atrial premature complex Compared to ECG 08/09/2018 16:15:21 Atrial premature complex(es) now present Electronically Signed On 08-28-2018 13:44:55 CDT by Benjie Ko [email or web address] <ELECTRONICALLY SIGNED> By: Benjei Ko MD, [facility] 08/28/18 1344 0355 0355 Benjie Ko MD, FACC /EPI
== END 2018-08-28 08:01 | disposition home or self-care (01) ==
LOC: M.ERS 03:46
PROVIDERS: Emergency Medicine
DX: R07.89 Other chest pain (principal); K59.00 Constipation, unspecified; I10 Essential (primary) hypertension; E11.9 Type 2 diabetes mellitus without complications; Z90.49 Acquired absence of other specified parts of digestive tract; Z95.5 Presence of coronary angioplasty implant and graft; Z88.2 Allergy status to sulfonamides

== ENCOUNTER → 2018-08-30 | Outpatient (CLI) | payer MEDICARE | LOC: M.WC 02:05 | DX: E11.622 Type 2 diabetes mellitus with other skin ulcer (principal); L89.223 Pressure ulcer of left hip, stage 3; L98.491 Non-pressure chronic ulcer of skin of other sites limited to breakdown of skin; G80.9 Cerebral palsy, unspecified; I10 Essential (primary) hypertension ==

== ENCOUNTER → 2018-09-06 | Outpatient (CLI) | payer MEDICARE | LOC: M.WC 00:56 | DX: E11.622 Type 2 diabetes mellitus with other skin ulcer (principal); L89.223 Pressure ulcer of left hip, stage 3; L98.496 Non-pressure chronic ulcer of skin of other sites with bone involvement without evidence of necrosis; G80.9 Cerebral palsy, unspecified; I10 Essential (primary) hypertension ==

== ENCOUNTER → 2018-09-13 | Outpatient (CLI) | payer MEDICARE | LOC: M.WC 01:23 | DX: E11.621 Type 2 diabetes mellitus with foot ulcer (principal); L98.491 Non-pressure chronic ulcer of skin of other sites limited to breakdown of skin; L89.223 Pressure ulcer of left hip, stage 3; I10 Essential (primary) hypertension; G80.9 Cerebral palsy, unspecified ==

== ENCOUNTER 2018-10-04 06:37 | Inpatient (IN) | payer MEDICARE ==
[~2018-10-04] VITALS: Ht 157.5 cm; Wt 63.5 kg
[~2018-10-04 06:37] MED LIST changes: +MUCINEX600 MG PO
[2018-10-04 11:13] LABS: HEMATOCRIT 37.4 % (37.0-47.0); HEMOGLOBIN 12.5 gm/dL (12.0-15.0); MCHC 33.3 g/dL (28.0-37.0); MCV 92.9 fL (80.0-100.0); MPV 6.6 fl. (7.2-11.1); RBC 4.02 mil/uL (4.20-5.00); RDW-CV 14.3 % (10.5-14.5)
[2018-10-04 11:19] LABS: CREATININE 1.5 mg/dL (0.6-1.3); POTASSIUM 4.1 mmol/L (3.5-5.1)
--- NOTE | 2018-10-04 12:24 | H ---
[place] [address] HISTORY AND PHYSICAL Name: DAFNE WEI Room: [place] [address] ADM IN ..#: [id number] Admission: 10/04/18 Attend Phys: Claudia Self MD Discharge: Date of : 55 Report #: [id number] THIS REPORT FOR: //name// CC: Claudia Rodriguez DATE OF SERVICE: 10/04/2018 ADMITTING DIAGNOSIS: Left pressure hip ulcer. HISTORY OF PRESENT ILLNESS: The patient presents to my clinic with a significant history of having cerebral palsy, ____, type 2 diabetes, and kidney stones. PAST SURGICAL HISTORY: Cardiac stent ____ with a left hip unstageable ulcer, which was debrided by Dr. Vance and was noted to have a deep undermining which she wants surgically excised opened ____ closed by secondary extent. HOME MEDICATIONS: Lipitor, ____ calcium, ____, Levemir, ____, Brilinta, potassium chloride, and omeprazole. PHYSICAL EXAMINATION: GENERAL: She is moderately obese, well-developed female in no acute distress. HEAD, EYES, EARS, NOSE AND THROAT: Unremarkable. NECK: Supple. LUNGS: Clear. CARDIAC: Regular rate and rhythm without murmur. ABDOMEN: Soft. EXTREMITIES: Left hip, she had a pressure ____ ulcer with opening of ____. IMPRESSION: Type 2 diabetes with pressure ulcer healing stage 3. PLAN: Surgical debridement and placement of negative pressure wound therapy device. The risks and benefits were outlined to the patient's daughter. Questions answered. They understand and wish to proceed with surgical treatment. <ELECTRONICALLY SIGNED> By: Claudia Self MD 10/04/18 1224 1842 1902Claudia Self MD /nt
[2018-10-04] MEDS ORDERED: NORCO 5-325 TA1 EAC1 PO (13:08)
[2018-10-04 18:09] VITALS: BP 125/60
--- NOTE | 2018-10-04 18:10 | NUR ---
PT ARRIVED TO UNIT FROM PACU ABOUT 1745. ON CAPNO AND 3LOX. UP WITH [address]OM. CONOR IN PLACE. DRESSING IS SATURATED, DR THORPE AWSTEPHANIE AND WILL LOOK AT IT TOMORROW. TOLERATING FOOD AND DRINK. FALL PREACAUTIONS IN PLACE. CALL LIGHT WITHIN REACH. WILL CONTINUE TO MONITOR.
[2018-10-04 20:40] VITALS: BP 112/59
[2018-10-05 00:30] VITALS: BP 114/61
[2018-10-05 04:25] LABS: HEMATOCRIT 32.3 % (37.0-47.0); HEMOGLOBIN 11.2 gm/dL (12.0-15.0); MCH 32.2 pg (26.0-34.0); MCHC 34.8 g/dL (28.0-37.0); MCV 92.7 fL (80.0-100.0); MPV 7.1 fl. (7.2-11.1); RBC 3.48 mil/uL (4.20-5.00); RDW-CV 14.7 % (10.5-14.5); WBC 6.7 thou/uL (4.0-11.0)
[2018-10-05 04:30] VITALS: BP 116/59
[2018-10-05 05:02] LABS: CALCIUM 8.7 mg/dL (8.5-10.1); CREATININE 1.4 mg/dL (0.6-1.3); POTASSIUM 3.9 mmol/L (3.5-5.1)
--- NOTE | 2018-10-05 05:52 | NUR ---
PATIENT HAS SLEPT OFF AND ON DURING THE NIGHT WITH PERIODS OF RESTLESSNESS. VSS ON 3L 02 VIA NASAL CANNULA. PATIENT UP WITH ASSIST X 1 WITH GAITBELT AND WALKER. DRESSING TO LEFT HIP IS INTACT BUT DOES HAVE SOME NOTABLE SATURATION. NO C/O PAIN. MEDICATIONS GIVEN ORDERED AND CHARTED. IV IN LEFT WRIST-SL. PATIENT INSTRUCTED TO USE CALL LIGHT WHEN NEEDING ASSISTANCE. HOURLY ROUNDS MADE. WILL CONTINUE WITH PLAN OF CARE AND NURSING TO MONITOR.
[2018-10-05 08:13] VITALS: BP 120/67
--- NOTE | 2018-10-05 11:06 | NUR ---
Nutrition: Pt admitted with stage III pressure ulcer. H/o DM II, cerebral pasy. No albumin recorded, prealbumin 13.6. 140#. Tolerating diet. RD spoke with pt about ordering Fracisco protein powder for her wound healing. RD ordered Fracisco bid to come with meal trays. Please assist pt if she needs help mixing Fracisco. Mild risk.
--- NOTE | 2018-10-05 11:41 | NUR ---
SPOKE WITH PT. SHE WAS ALERT. STATED SHE DOESN'T FEEL GOOD TODAY. TOLD HER SHE WOULD PROBABLY FEEL BETTER TOMORROW SHE JUST HAD SURGERY YESTERDAY. REVIEWED CHART. NIECE,AYE GARCIA IS HER LEGAL GUARDIAN AND DPOA. DOCUMENTS ON CHART. LEFT MESSAGE ON AYE'S VM [phone] FOR HER TO CALL CM BACK TO DISCUSS DISCHARGE PLANNING. PT.TO HAVE PT/OT TODAY. HAS O2 AT THIS TIME BUT DOES NOT APPEAR TO HAVE AT HOME. CM WILL FOLLOW.
--- NOTE | 2018-10-05 12:29 | OP ---
[address] [address] OPERATIVE REPORT Name: DAFNE WEI Room: [address] IN M.R.#: [id number] Admission: 10/04/18 Attend Phys: Claudia Self MD Discharge: Date of : 55 Report #: [id number] THIS REPORT FOR: //name// CC: Claudia Rodriguez DATE OF SERVICE: 10/04/2018 PREOPERATIVE DIAGNOSIS: Chronic nonhealing left hip pressure ulcer. POSTOPERATIVE DIAGNOSIS: Chronic nonhealing left hip pressure ulcer. OPERATIVE PROCEDURE: Wide local excisional debridement down to tendon by 5 cm x 3 cm x 2 cm, left hip pressure ulcer placement of 5 x 5 PriMatrix into the wound bed and as filler and placement of a 15 x 15 negative pressure wound therapy device disposable CONOR. ANESTHESIA: General endotracheal with 0.5% Marcaine with epinephrine infiltrated in the wound site. DESCRIPTION OF PROCEDURE: The patient was placed under general endotracheal anesthesia, placed in a right lateral decubitus position and the left hip and ulcer were carefully prepped and draped in a sterile fashion. A timeout was taken. IV antibiotic was administered. I began by infiltrating around the cavity site as identified with a DeBakey forceps and marked it with a marking pen, infiltrated around that site and began making an incision with a #15 scalpel blade in an elliptical fashion and then using cautery to unroof the skin, subcutaneous fat and tendon to expose the ulcer that was sharply debrided and then irrigated and cauterized to control bleeding. I then took a 5 x 5 piece of PriMatrix, cut it 8 x 2 cm to make it 5 x 3 and laid it into the wound bed, but the rest of the PriMatrix was placed in a small tunnel that was created as a filler and then it was covered with Xeroform and then a CONOR was applied with good seal during the operative procedure. Estimated blood loss was 10 mL. Specimen sent to pathology. The patient was sent to recovery room in satisfactory condition. <ELECTRONICALLY SIGNED> By: Claudia Self MD 10/05/18 1229 1230 1410Claudia Self MD /nt
[2018-10-05 17:09] VITALS: BP 128/54
--- NOTE | 2018-10-05 18:38 | NUR ---
PT A&Ox4. DRESSING CHANGED BY DR THORPE. UP WITH 1 STAND BY. TOLERATING DIET. STAYING FOR PT AND OT TOMORROW. ON RA. IV PATENT. CALL LIGHT WITHIN REACH. FALL PREACAUTIONS IN PLACE. WILL CONTINUE TO MONITOR.
[2018-10-05 21:00] VITALS: BP 157/74
--- NOTE | 2018-10-06 07:06 | NUR ---
PATIENT HAS SLEPT WELL THROUGHOUT THE NIGHT. VSS ON RA. NO C/O PAIN. DRESSING TO LEFT HIP IS INTACT BUT DOES HAVE SOME NOTABLE DRAINAGE. IV IN LEFT WRIST-SL. PATIENT INSTRUCTED TO USE CALL LIGHT WHEN NEEDING ASSISTANCE. HOURLY ROUNDS MADE. WILL CONTINUE WITH PLAN OF CARE AND NURSING TO MONITOR.
[2018-10-06] MEDS ORDERED: LEVAQUIN 500 M500 M2 PO (11:04)
[2018-10-06] MEDS ORDERED: BRILINTA90 MG PO (11:05)
[2018-10-06 11:58] VITALS: BP 144/66
--- NOTE | 2018-10-06 12:21 | NUR ---
PT.TO BE DISCHARGED TODAY WITH HOME HEALTH. WILMAR CONTACTED [facility]. SHE SAID SHE WOULD BE ABLE TO PICK PT.UP THIS AFTERNOON,SOMETIME. DISCUSSED HOME HEALTH AGENCIES. SHE CHOSE [facility] . FAXED REFERRAL AND DISCHARGE ORDERS TO [facility].
--- NOTE | 2018-10-06 15:21 | NUR ---
ASSUMED CARE OF PATIENT AT APPROX 0730. ALERT AND ORIENTED X4. ASSESSMENT COMPLETED AND CHARTED. VSS ON ROOM AIR. NO COMPLAINTS OF PAIN, NAUSEA, OR SOA. ANTIBIOTICS INFUSED ORDERED. PATIENT DISCHARGED AT 1452 WITH ALL PERSONAL BELONGINGS, PRESCRIPTIONS AND DISCHARGE INFORMATION.
== END 2018-10-06 14:52 | disposition home health service (06) | DRG 981 ==
LOC: M.PRE 06:37 → M.TBA 10:39 → M.ORTHSURG 10:39 → M.PRE 12:02 → M.ORTHSURG 17:46
PROVIDERS: Anesthesiology; Internal Medicine; ADMIT Surgery
PROC: 0LBK0ZZ Excision of Left Hip Tendon, Open Approach (ICD-10-PCS; principal; 2018-10-04)
DX: L89.223 Pressure ulcer of left hip, stage 3 (principal); J96.01 Acute respiratory failure with hypoxia; E11.622 Type 2 diabetes mellitus with other skin ulcer; G80.9 Cerebral palsy, unspecified; E11.9 Type 2 diabetes mellitus without complications; I25.10 Atherosclerotic heart disease of native coronary artery without angina pectoris; J40 Bronchitis, not specified as acute or chronic; Z95.5 Presence of coronary angioplasty implant and graft; Z88.2 Allergy status to sulfonamides; Z79.82 Long term (current) use of aspirin; Z79.899 Other long term (current) drug therapy; Z82.49 Family history of ischemic heart disease and other diseases of the circulatory system

== ENCOUNTER → 2018-10-11 | Outpatient (CLI) | payer MEDICARE ==
[~2018-10-11] MED LIST changes: +LEVAQUIN 500 M500 M2 PO; +NORCO 5-325 TA1 EAC1 PO
== END ==
LOC: M.WC 00:36
DX: T81.89XA Other complications of procedures, not elsewhere classified, initial encounter (principal); E11.622 Type 2 diabetes mellitus with other skin ulcer; L89.223 Pressure ulcer of left hip, stage 3; L98.491 Non-pressure chronic ulcer of skin of other sites limited to breakdown of skin; G80.9 Cerebral palsy, unspecified; I10 Essential (primary) hypertension; Y92.89 Other specified places as the place of occurrence of the external cause; Y83.8 Other surgical procedures as the cause of abnormal reaction of the patient, or of later complication, without mention of misadventure at the time of the procedure

== ENCOUNTER → 2018-10-18 | Outpatient (CLI) | payer MEDICARE | LOC: M.WC 01:12 | DX: T81.89XD Other complications of procedures, not elsewhere classified, subsequent encounter (principal); E11.622 Type 2 diabetes mellitus with other skin ulcer; L89.223 Pressure ulcer of left hip, stage 3; L98.491 Non-pressure chronic ulcer of skin of other sites limited to breakdown of skin; I10 Essential (primary) hypertension; G80.9 Cerebral palsy, unspecified; Y83.8 Other surgical procedures as the cause of abnormal reaction of the patient, or of later complication, without mention of misadventure at the time of the procedure ==

== ENCOUNTER → 2018-10-25 | Outpatient (CLI) | payer MEDICARE | LOC: M.WC 02:21 | DX: T81.89XD Other complications of procedures, not elsewhere classified, subsequent encounter (principal); I10 Essential (primary) hypertension; D64.9 Anemia, unspecified; G80.9 Cerebral palsy, unspecified; Y83.8 Other surgical procedures as the cause of abnormal reaction of the patient, or of later complication, without mention of misadventure at the time of the procedure ==

== ENCOUNTER → 2018-10-27 | Outpatient (CLI) | payer MEDICARE | LOC: M.WC 11:00 | DX: T81.89XD Other complications of procedures, not elsewhere classified, subsequent encounter (principal); E11.622 Type 2 diabetes mellitus with other skin ulcer; L89.223 Pressure ulcer of left hip, stage 3; L98.491 Non-pressure chronic ulcer of skin of other sites limited to breakdown of skin; I10 Essential (primary) hypertension; G80.9 Cerebral palsy, unspecified; D64.9 Anemia, unspecified; Y83.8 Other surgical procedures as the cause of abnormal reaction of the patient, or of later complication, without mention of misadventure at the time of the procedure ==

== ENCOUNTER → 2018-11-01 | Outpatient (CLI) | payer MEDICARE | LOC: M.WC 04:46 | DX: T81.89XD Other complications of procedures, not elsewhere classified, subsequent encounter (principal); E11.622 Type 2 diabetes mellitus with other skin ulcer; L89.223 Pressure ulcer of left hip, stage 3; L98.491 Non-pressure chronic ulcer of skin of other sites limited to breakdown of skin; G80.9 Cerebral palsy, unspecified; I10 Essential (primary) hypertension; Y83.8 Other surgical procedures as the cause of abnormal reaction of the patient, or of later complication, without mention of misadventure at the time of the procedure ==

== ENCOUNTER 2018-11-04 14:47 | Emergency (ER) | payer MEDICARE ==
[~2018-11-04] VITALS: Ht 152.4 cm; Wt 68.0 kg
[2018-11-04 15:48] VITALS: BP 116/57
== END 2018-11-04 15:49 | disposition home or self-care (01) ==
LOC: M.ERS 14:47
DX: S51.811A Laceration without foreign body of right forearm, initial encounter (principal); E11.9 Type 2 diabetes mellitus without complications; I10 Essential (primary) hypertension; Z86.2 Personal history of diseases of the blood and blood-forming organs and certain disorders involving the immune mechanism; Z90.49 Acquired absence of other specified parts of digestive tract; Z95.5 Presence of coronary angioplasty implant and graft; Z88.2 Allergy status to sulfonamides; X58.XXXA Exposure to other specified factors, initial encounter; Y93.89 Activity, other specified; Y92.89 Other specified places as the place of occurrence of the external cause; Y99.8 Other external cause status

== ENCOUNTER → 2018-11-08 | Outpatient (CLI) | payer MEDICARE | LOC: M.WC 04:31 | DX: T81.89XD Other complications of procedures, not elsewhere classified, subsequent encounter (principal); E11.622 Type 2 diabetes mellitus with other skin ulcer; L89.223 Pressure ulcer of left hip, stage 3; L98.491 Non-pressure chronic ulcer of skin of other sites limited to breakdown of skin; G80.9 Cerebral palsy, unspecified; I10 Essential (primary) hypertension; Y83.8 Other surgical procedures as the cause of abnormal reaction of the patient, or of later complication, without mention of misadventure at the time of the procedure ==

== ENCOUNTER → 2018-11-22 | Outpatient (CLI) | payer MEDICARE | LOC: M.WC 01:38 | DX: T81.89XD Other complications of procedures, not elsewhere classified, subsequent encounter (principal); E11.622 Type 2 diabetes mellitus with other skin ulcer; L89.223 Pressure ulcer of left hip, stage 3; L98.492 Non-pressure chronic ulcer of skin of other sites with fat layer exposed; G80.9 Cerebral palsy, unspecified; I10 Essential (primary) hypertension; Y83.8 Other surgical procedures as the cause of abnormal reaction of the patient, or of later complication, without mention of misadventure at the time of the procedure ==

== ENCOUNTER → 2018-11-29 | Outpatient (CLI) | payer MEDICARE | LOC: M.WC 01:33 | DX: T81.89XD Other complications of procedures, not elsewhere classified, subsequent encounter (principal); I10 Essential (primary) hypertension; E11.9 Type 2 diabetes mellitus without complications; G80.9 Cerebral palsy, unspecified; Y83.8 Other surgical procedures as the cause of abnormal reaction of the patient, or of later complication, without mention of misadventure at the time of the procedure ==

== ENCOUNTER → 2018-12-06 | Outpatient (CLI) | payer MEDICARE | LOC: M.WC 04:54 | DX: T81.89XD Other complications of procedures, not elsewhere classified, subsequent encounter (principal); E11.622 Type 2 diabetes mellitus with other skin ulcer; L89.223 Pressure ulcer of left hip, stage 3; L98.492 Non-pressure chronic ulcer of skin of other sites with fat layer exposed; I10 Essential (primary) hypertension; G80.9 Cerebral palsy, unspecified; Y83.8 Other surgical procedures as the cause of abnormal reaction of the patient, or of later complication, without mention of misadventure at the time of the procedure ==

== ENCOUNTER → 2018-12-13 | Outpatient (CLI) | payer MEDICARE | LOC: M.WC 00:17 | DX: T81.89XD Other complications of procedures, not elsewhere classified, subsequent encounter (principal); E11.622 Type 2 diabetes mellitus with other skin ulcer; L89.223 Pressure ulcer of left hip, stage 3; L98.495 Non-pressure chronic ulcer of skin of other sites with muscle involvement without evidence of necrosis; G80.9 Cerebral palsy, unspecified; I10 Essential (primary) hypertension; Y83.8 Other surgical procedures as the cause of abnormal reaction of the patient, or of later complication, without mention of misadventure at the time of the procedure ==

== ENCOUNTER → 2018-12-31 | Outpatient (CLI) | payer MEDICARE | LOC: M.WC 12-24 04:37 | DX: T81.89XD Other complications of procedures, not elsewhere classified, subsequent encounter (principal); E11.622 Type 2 diabetes mellitus with other skin ulcer; L89.223 Pressure ulcer of left hip, stage 3; L98.422 Non-pressure chronic ulcer of back with fat layer exposed; I10 Essential (primary) hypertension; G80.9 Cerebral palsy, unspecified; Y83.8 Other surgical procedures as the cause of abnormal reaction of the patient, or of later complication, without mention of misadventure at the time of the procedure ==

== ENCOUNTER 2019-01-12 03:08 | Inpatient (IN) | payer MEDICARE ==
[~2019-01-12] VITALS: Ht 154.9 cm; Wt 70.8 kg
[2019-01-12 03:43] LABS: URINE BILIRUBIN NEGATIVE (Negative); URINE BLOOD 1+ (Negative); URINE CLARITY SL CLOUDY; URINE COLOR YELLOW; URINE GLUCOSE-RANDOM 3+ (Negative); URINE KETONES NEGATIVE (Negative); URINE LEUKOCYTES-REFLEX NEGATIVE (Negative); URINE NITRITE-REFLEX NEGATIVE (Negative); URINE PROTEIN 1+ (Negative); URINE UROBILINOGEN 0.2 E.U./dl (0.2-1.0)
[2019-01-12 03:56] LABS: ABSOLUTE EOSINOPHILS 0.1 thou/uL (0.0-0.7); ABSOLUTE MONOCYTES 0.9 thou/uL (0.0-1.2); ABSOLUTE NEUTROPHILS 10.9 thou/uL (1.6-8.1); BASOPHILS 0.3 %; EOSINOPHILS 0.6 %; HEMATOCRIT 27.4 % (37.0-47.0); HEMOGLOBIN 9.3 gm/dL (12.0-15.0); LYMPHOCYTES 7.9 %; MCHC 33.9 g/dL (28.0-37.0); MCV 91.3 fL (80.0-100.0); MONOCYTES 7.2 %; MPV 7.2 fl. (7.2-11.1); NUCLEATED RBCS 0 /100WBC; PLATELET COUNT* 270 thou/uL (150-400); RDW-CV 14.2 % (10.5-14.5)
[2019-01-12 04:06] LABS: CALCIUM 8.9 mg/dL (8.5-10.1); CREATININE 1.9 mg/dL (0.6-1.3); POTASSIUM 3.9 mmol/L (3.5-5.1)
[2019-01-12 04:10] LABS: CASTS None Seen /LPF (None Seen); SQUAMOUS 4-10 Moderate /LPF (0-3)
[2019-01-12 04:11] LABS: URINE WBC-REFLEX >25 Many /HPF (0-5)
[2019-01-12 04:12] LABS: BACTERIA-REFLEX >30 Many /HPF (None Seen); CRYSTALS None Seen /LPF (None Seen); URINE RBC 3-10 Few /HPF (0-2)
[2019-01-12 07:55] VITALS: BP 122/63
[2019-01-12 08:05] VITALS: BP 147/64
--- NOTE | 2019-01-12 10:18 | EKG ---
[place] [address] ELECTROCARDIOGRAM REPORT Name: DAFNE WEI Room: [address] ADM IN .R.#: [id number] Admission: 01/12/19 Attend Phys: Flaco Gallegos, Discharge: Date of : 55 Report #: [id number] THIS REPORT FOR: //name// [facility] ED Test Date: 2019-01-12 Test Time: 03:59:07 Pat Name: DAFNE WEI Department: Room: [facility] Gender: F Chin Strap Sewer: MYRNA : 1955 Requested By: Geno Beltran Order Number: [id number] MD: Benjie Ko Measurements Intervals [place] Rate: 82 P: 59 LA: 142 QRS: 44 QRSD: 91 T: 45 QT: 383 QTc: 448 Interpretive Statements Sinus rhythm Compared to ECG 08/28/2018 03:55:18 Atrial premature complex(es) no longer present Electronically Signed On 01-12-2019 10:18:00 CDT by Benjie Ko [email or web address] <ELECTRONICALLY SIGNED> By: Benjie Ko MD, [facility] 01/12/19 1018 0359 0359 Benjie Ko MD, FACC /EPI
[2019-01-12 12:07] VITALS: BP 120/53
[2019-01-12 15:26] VITALS: BP 126/52
--- NOTE | 2019-01-12 16:40 | EKG ---
[place] [address] ELECTROCARDIOGRAM REPORT Name: DAFNE WEI Room: [address] ADM IN M.R.#: [id number] Admission: 01/12/19 Attend Phys: Flaco Gallegos, Discharge: Date of : 55 Report #: [id number] THIS REPORT FOR: //name// [facility] Test Date: 2019-01-12 Test Time: 13:32:14 Pat Name: DAFNE WEI Department: Room: [address] Gender: F Screw Machine Set Up Operator Tool: : 1955 Requested By: Paola Breaux Order Number: [id number] Lio MD: Benjie Ko Measurements Intervals [place] Rate: 70 P: 47 NC: 133 QRS: 48 QRSD: 96 T: 57 QT: 417 QTc: 450 Interpretive Statements Sinus rhythm Abnormal R-wave progression, early transition Baseline wander in lead(s) V4 Compared to ECG 01/12/2019 03:59:07 No significant changes Electronically Signed On 01-12-2019 16:40:40 CDT by Benjie Ko [email or web address] <ELECTRONICALLY SIGNED> By: Benjie Ko MD, FAC 01/12/19 1640 1332 1332 Benjie Ko MD, [facility] /EPI
[2019-01-12 20:00] VITALS: BP 142/62
[2019-01-13] VITALS (7 sets, daily range): BP systolic 128–153; BP diastolic 53–75
[2019-01-13 04:40] LABS: HEMATOCRIT 25.7 % (37.0-47.0); HEMOGLOBIN 8.7 gm/dL (12.0-15.0); MCHC 33.8 g/dL (28.0-37.0); MCV 91.6 fL (80.0-100.0); MPV 7.1 fl. (7.2-11.1); RBC 2.81 mil/uL (4.20-5.00); RDW-CV 14.5 % (10.5-14.5); WBC 10.7 thou/uL (4.0-11.0)
[2019-01-13 04:52] LABS: CALCIUM 8.1 mg/dL (8.5-10.1); CREATININE 1.2 mg/dL (0.6-1.3); MAGNESIUM 1.6 mg/dL (1.8-2.4); POTASSIUM 3.6 mmol/L (3.5-5.1)
--- NOTE | 2019-01-13 07:38 | CON ---
[address] [address] CONSULTATION Name: DAFNE WEI Room: [address] IN .R.#: [id number] Admission: 01/12/19 Attend Phys: Flaco Gallegos, Discharge: Date of : 55 Report #: [id number] THIS REPORT FOR: //name// CC: Dr. Paola Gallegos DATE OF SERVICE: 01/12/2019 REQUESTING PHYSICIAN: I am seeing this patient at the request of Dr. Paola Breaux. CHIEF COMPLAINT: Left hip pressure ulcer. HISTORY OF PRESENT ILLNESS: This is a 63-year-old woman who has been admitted for increased weakness and urinary frequency. She is quite debilitated. She has developed a pressure ulcer of the left hip. She does not complain of any pain at this time. There is no drainage. PAST MEDICAL HISTORY: Dementia, constipation, dehydration, dizziness, hematuria, past history of non-STEMI, chest pain. PAST SURGICAL HISTORY: Cholecystectomy and cardiac catheterization with stenting. SOCIAL HISTORY: No tobacco or alcohol use. ALLERGIES: Listed and reviewed in the chart. MEDICATIONS: Insulin, Lexapro, Risperdal, prednisone, NovoLog and aspirin. REVIEW OF SYSTEMS: Unobtainable as the patient does not respond to questions appropriately. PHYSICAL EXAMINATION: VITAL SIGNS: Temperature 37.2, pulse 59, blood pressure 126/52. GENERAL: She is awake and alert, in no acute distress. HEENT: Extraocular movements are intact. Sclerae without icterus. NECK: Supple. CARDIOVASCULAR: Regular rate and rhythm. CHEST: Fair movement bilaterally. ABDOMEN: Soft, nondistended. EXTREMITIES: Examination of the left hip demonstrates a 2 x 1 x 2 cm pressure ulcer. This has good granulation. There is no purulent drainage. EXTREMITIES: Without clubbing, cyanosis or edema. NEUROLOGIC: [place] [address] CONSULTATION Name: SANJUANADAFNE ALMA ROSA Room: [address] IN [facility]#: [id number] Admission: 01/12/19 Attend Phys: Flaco Gallegos, Discharge: Date of : 55 Report #: [id number] SKIN: Without rash or jaundice. ASSESSMENT AND PLAN: A 63-year-old woman with a pressure ulcer of the left hip. I would recommend continued pressure offloading and packing with alginate. She should have frequent returns to prevent more pressure ulcer formation. Follow along with you. Thank you for asking me to take part in the care of this patient. <ELECTRONICALLY SIGNED> By: Jeronimo Jackson MD 01/13/19 0738 1727 0023Jeronimo Jackson MD /nt
[2019-01-14 03:56] LABS: HEMATOCRIT 28.3 % (37.0-47.0); HEMOGLOBIN 9.7 gm/dL (12.0-15.0); MCHC 34.1 g/dL (28.0-37.0); MCV 90.8 fL (80.0-100.0); MPV 7.1 fl. (7.2-11.1); RBC 3.12 mil/uL (4.20-5.00); RDW-CV 14.1 % (10.5-14.5); WBC 9.3 thou/uL (4.0-11.0)
[2019-01-14 04:13] LABS: CALCIUM 8.5 mg/dL (8.5-10.1); CREATININE 1.3 mg/dL (0.6-1.3); MAGNESIUM 1.8 mg/dL (1.8-2.4); POTASSIUM 3.9 mmol/L (3.5-5.1)
--- NOTE | 2019-01-14 07:04 | CON ---
[address] [address] CONSULTATION Name: DAFNE WEI Room: [address] IN .R.#: [id number] Admission: 01/12/19 Attend Phys: Flaco Gallegos, Discharge: Date of : 55 Report #: [id number] THIS REPORT FOR: //name// CC: Herve Gallegos DATE OF SERVICE: 01/13/2019 INFECTIOUS DISEASE CONSULTATION ATTENDING PHYSICIAN: Dr. Gallegos. REASON FOR EVALUATION: Gram-negative septicemia in the setting of complicated genitourinary tract infection, likely pyelonephritis. HISTORY OF PRESENT ILLNESS: Chart reviewed, the patient examined. This is a 63-year-old woman with known history of cerebral palsy, I think a component of dementia as well, presented through the Emergency Room with caregiver, had been progressively getting weaker over the course of a day or 2 prior to admission. She had poor p.o. intake and refused evaluation. Noted urinalysis, which showed marked pyuria. Urine culture now with growth of gram-negative rods and started on ceftriaxone. ALLERGIES: LISTED TO SULFA, WHICH CAUSES A RASH. MEDICATIONS: Include ceftriaxone, enoxaparin, citalopram, famotidine, ticagrelor, metoprolol, guaifenesin, atorvastatin, insulin glargine, risperidone, prednisone 5 daily, aspirin, and ondansetron. PAST MEDICAL HISTORY: As described above, history of cerebral palsy, hypertension, has known atherosclerotic coronary artery disease, previous cardiac stenting, diabetes mellitus type 2, history of vasculitis, previous cholecystectomy, and chronic anemia. SOCIAL HISTORY: Nonsmoker, no ethanol, and no illicit drug use. FAMILY HISTORY: Noncontributory. REVIEW OF SYSTEMS: Somewhat limited due to her level of unresponsive to responsiveness and secondary to likely degree of dementia. PHYSICAL EXAMINATION: GENERAL: She appears chronically ill, undernourished, acute component. VITAL SIGNS: Temperature 97.6, pulse 68, respirations 18, and blood pressure 130/70. SKIN: Warm, dry, [place] [address] CONSULTATION Name: SANJUANADAFNE ANN Room: [address] IN [facility].#: [id number] Admission: 01/12/19 Attend Phys: Flaco Gallegos, Discharge: Date of : 55 Report #: [id number] HEENT: Otherwise, unremarkable. Neck is supple. Normocephalic. Extraocular muscles are intact. LUNGS: Diminished breath sounds. Few scattered crackles at the bases. HEART: Regular. I do not appreciate a murmur. ABDOMEN: Soft. There is no apparent tenderness. No peritoneal signs. GENITOURINARY AND RECTAL: Deferred. LABORATORY DATA: Blood cultures 04/28 with gram-negative rods. Electrolytes: Sodium 134, potassium 3.6, chloride of 103, bicarbonate of 24, anion gap of 7, BUN and creatinine 12 and 1.2, glucose of 99, and estimated GFR of 45. CBC: White count 10.7, H and H 8.7 and 25.7, and platelets of 266. CT of abdomen and pelvis, mildly thickened bladder wall. CT of the chest, no acute abnormalities. Lactic acid of 1.0. Urinalysis, greater than 25 white cells, greater than 30 bacteria. ASSESSMENT: Gram-negative septicemia on basis of complicated urinary tract infection, likely pyelonephritis. We will continue parenteral therapy, adjust antimicrobial regimen at this point. She is quite ill, although she is not overtly unstable. We will monitor expectantly, certainly risk for nosocomial related infectious complications. <ELECTRONICALLY SIGNED> By: Jm Black MD 01/14/19 0704 1547 2213Josejessica Black MD /nt
[2019-01-14 07:59] VITALS: BP 147/68
[2019-01-14 20:30] VITALS: BP 136/79
[2019-01-15 16:29] VITALS: BP 154/71
[2019-01-15 21:00] VITALS: BP 147/72
[2019-01-16 09:50] VITALS: BP 134/46
[2019-01-16 15:41] VITALS: BP 123/63
[2019-01-17 04:58] LABS: HEMATOCRIT 29.4 % (37.0-47.0); HEMOGLOBIN 9.8 gm/dL (12.0-15.0); MCH 30.5 pg (26.0-34.0); MCHC 33.5 g/dL (28.0-37.0); MPV 7.3 fl. (7.2-11.1); RBC 3.23 mil/uL (4.20-5.00); RDW-CV 13.9 % (10.5-14.5); WBC 8.6 thou/uL (4.0-11.0)
[2019-01-17 05:24] LABS: CALCIUM 8.6 mg/dL (8.5-10.1); CREATININE 1.4 mg/dL (0.6-1.3); MAGNESIUM 2.2 mg/dL (1.8-2.4); POTASSIUM 4.4 mmol/L (3.5-5.1)
[2019-01-17 08:21] VITALS: BP 148/78
[2019-01-17 10:52] LABS: ALBUMIN 2.4 g/dL (3.4-5.0); ALKALINE PHOSPHATASE 152 U/L (46-116); AMYLASE 64 U/L (25-115); DIRECT BILIRUBIN < 0.1 mg/dL (<0.1-0.3); LIPASE 198 U/L (73-393); SGOT 29 U/L (15-37); SGPT 39 U/L (30-65); TOTAL BILIRUBIN 0.2 mg/dL (<0.1-1.0); TOTAL PROTEIN 6.9 g/dL (6.4-8.2)
[2019-01-17 17:09] VITALS: BP 138/48
[2019-01-17 22:00] VITALS: BP 142/52
[2019-01-18 07:25] VITALS: BP 122/69
[2019-01-18 08:54] VITALS: BP 122/62
[2019-01-18 10:27] VITALS: BP 122/62
[2019-01-18 16:00] VITALS: BP 114/60
[2019-01-18 20:00] VITALS: BP 133/66
[2019-01-19 03:08] LABS: HEMATOCRIT 28.3 % (37.0-47.0); HEMOGLOBIN 9.7 gm/dL (12.0-15.0); MCH 31.4 pg (26.0-34.0); MCHC 34.3 g/dL (28.0-37.0); MCV 91.5 fL (80.0-100.0); MPV 6.9 fl. (7.2-11.1); RBC 3.09 mil/uL (4.20-5.00); RDW-CV 14.2 % (10.5-14.5); WBC 8.6 thou/uL (4.0-11.0)
[2019-01-19 03:10] LABS: CREATININE 1.4 mg/dL (0.6-1.3); POTASSIUM 4.2 mmol/L (3.5-5.1)
[2019-01-19 07:35] VITALS: BP 144/63
[2019-01-19 15:17] VITALS: BP 122/62
[2019-01-19] MEDS ORDERED: LIPITOR40 MG PO (16:31)
[2019-01-19 17:28] VITALS: BP 122/62
== END 2019-01-19 17:33 | DRG 871 ==
LOC: M.ERS 03:08 → M.TBA-ER 06:25 → M.2W 06:25 → M.ORTHSURG 01-13 21:33
PROVIDERS: Emergency Medicine; Internal Medicine; Specialist; ADMIT Family Medicine
DX: A41.51 Sepsis due to Escherichia coli [E. coli] (principal); L89.223 Pressure ulcer of left hip, stage 3; N17.0 Acute kidney failure with tubular necrosis; N30.00 Acute cystitis without hematuria; N12 Tubulo-interstitial nephritis, not specified as acute or chronic; F03.90 Unspecified dementia, unspecified severity, without behavioral disturbance, psychotic disturbance, mood disturbance, and anxiety; R62.50 Unspecified lack of expected normal physiological development in childhood; N18.3 Chronic kidney disease, stage 3 (moderate); E11.22 Type 2 diabetes mellitus with diabetic chronic kidney disease; I25.10 Atherosclerotic heart disease of native coronary artery without angina pectoris; I12.9 Hypertensive chronic kidney disease with stage 1 through stage 4 chronic kidney disease, or unspecified chronic kidney disease; E11.65 Type 2 diabetes mellitus with hyperglycemia; Z95.5 Presence of coronary angioplasty implant and graft; Z90.49 Acquired absence of other specified parts of digestive tract; Z79.02 Long term (current) use of antithrombotics/antiplatelets; Z79.4 Long term (current) use of insulin; Z79.82 Long term (current) use of aspirin; Z79.899 Other long term (current) drug therapy; Z88.2 Allergy status to sulfonamides; Z82.49 Family history of ischemic heart disease and other diseases of the circulatory system

== ENCOUNTER → 2019-01-24 | Outpatient (CLI) | payer MEDICARE ==
[~2019-01-24] MED LIST changes: +LIPITOR40 MG PO
== END ==
LOC: M.WC 01:59
DX: T81.89XD Other complications of procedures, not elsewhere classified, subsequent encounter (principal); E11.622 Type 2 diabetes mellitus with other skin ulcer; L89.223 Pressure ulcer of left hip, stage 3; L98.492 Non-pressure chronic ulcer of skin of other sites with fat layer exposed; G80.9 Cerebral palsy, unspecified; I10 Essential (primary) hypertension; Y83.8 Other surgical procedures as the cause of abnormal reaction of the patient, or of later complication, without mention of misadventure at the time of the procedure

== ENCOUNTER 2019-03-18 13:44 | Inpatient (IN) | payer MEDICARE ==
[~2019-03-18] VITALS: Ht 152.4 cm; Wt 72.9 kg
[2019-03-18 13:45] VITALS: BP 169/82
[2019-03-18] MEDS ORDERED: ARGINAID POWDE1 EACH PO (14:15)
[2019-03-18] MEDS ORDERED: ACIDOPHILUS1 EAC3 PO (14:15)
[2019-03-18] MEDS ORDERED: ASCORBIC ACID500 M3 PO (14:16)
[2019-03-18] MEDS ORDERED: DOXYCYCLINE 10100 M2 PO (14:17)
[2019-03-18] MEDS ORDERED: HYDROXYZINE HCL10 M1 PO (14:18)
[2019-03-18] MEDS ORDERED: LEVEMIR100 UNIT/2 SUBQ (14:19)
[2019-03-18] MEDS ORDERED: PRILOSEC OTC20 MG PO (14:19)
[2019-03-18 14:37] LABS: HEMOGLOBIN 10.9 gm/dL (12.0-15.0); MCH 30.3 pg (26.0-34.0); MCHC 34.1 g/dL (28.0-37.0); MCV 88.8 fL (80.0-100.0); NUCLEATED RBCS 0 /100WBC; PLATELET COUNT* 304 thou/uL (150-400); RDW-CV 15.7 % (10.5-14.5); WBC 16.3 thou/uL (4.0-11.0)
[2019-03-18 14:45] LABS: APTT 26.2 Seconds (25.0-31.3); CREATININE 1.4 mg/dL (0.6-1.3); POTASSIUM 4.5 mmol/L (3.5-5.1); PROTIME 10.4 Seconds (9.20-11.50)
[2019-03-18 14:56] LABS: ALBUMIN 2.8 g/dL (3.4-5.0); TOTAL BILIRUBIN 0.4 mg/dL (<0.1-1.0); TOTAL PROTEIN 7.7 g/dL (6.4-8.2)
[2019-03-18 15:07] LABS: INFLUENZA A ANTIGEN Negative (Negative); INFLUENZA B ANTIGEN Negative (Negative)
[2019-03-18 15:07] LABS: ABSOLUTE LYMPHOCYTES 0.2 thou/uL (0.8-5.3); ABSOLUTE MONOCYTES 0.5 thou/uL (0.0-1.2); ABSOLUTE NEUTROPHILS 15.6 thou/uL (1.6-8.1); PLATELET ESTIMATE ADEQUATE
--- NOTE | 2019-03-18 15:43 | EKG ---
[place] [address] ELECTROCARDIOGRAM REPORT Name: DAFNE WEI Room: [facility]#: [id number] Admission: 03/18/19 Attend Phys: Discharge: Date of : 55 Report #: [id number] THIS REPORT FOR: //name// [facility] ED Test Date: 2019-03-18 Test Time: 13:57:21 Pat Name: DAFNE WEI Department: Room: Gender: F Broadcast Engineer: : 1955 Requested By: Silas Simon Order Number: [id number] MD: Patel Graham Measurements Intervals [place] Rate: 115 P: 59 [place]: 147 QRS: 45 QRSD: 82 T: 53 QT: 333 QTc: 461 Interpretive Statements Sinus tachycardia Abnormal R-wave progression, early transition Artifact in lead(s) I,II,III,aVR,aVF,V3 Compared to ECG 01/12/2019 13:32:14 Sinus rate has increased Electronically Signed On 03-18-2019 15:43:29 METAL SOLDERER by Patel Graham [email or web address] <ELECTRONICALLY SIGNED> By: Patel Graham MD, [facility] 03/18/19 1543 1357 1357 Patel Graham MD, [facility] /EPI
[2019-03-18 17:44] VITALS: BP 114/64
[2019-03-18 18:40] VITALS: BP 114/64
[2019-03-18 20:30] VITALS: BP 152/86
[2019-03-19] VITALS: BP 159/89
[2019-03-19 04:00] VITALS: BP 149/82
[2019-03-19 04:31] LABS: HEMATOCRIT 29.9 % (37.0-47.0); HEMOGLOBIN 9.9 gm/dL (12.0-15.0); MCH 29.3 pg (26.0-34.0); MCV 88.8 fL (80.0-100.0); MPV 6.9 fl. (7.2-11.1); RBC 3.37 mil/uL (4.20-5.00); WBC 17.6 thou/uL (4.0-11.0)
[2019-03-19 04:44] LABS: ALBUMIN 2.2 g/dL (3.4-5.0); CALCIUM 8.6 mg/dL (8.5-10.1); CREATININE 1.2 mg/dL (0.6-1.3); MAGNESIUM 1.5 mg/dL (1.8-2.4); POTASSIUM 3.6 mmol/L (3.5-5.1); TOTAL BILIRUBIN 0.4 mg/dL (<0.1-1.0); TOTAL PROTEIN 6.7 g/dL (6.4-8.2)
[2019-03-19 08:15] VITALS: BP 141/78
[2019-03-19 19:30] VITALS: BP 169/85
[2019-03-20 07:30] VITALS: BP 149/86
--- NOTE | 2019-03-20 09:13 | CON ---
[address] [address] CONSULTATION Name: DAFNE WEI Room: [address] IN M.R.#: [id number] Admission: 03/18/19 Attend Phys: Paola Breaux MD Discharge: Date of : 55 Report #: [id number] THIS REPORT FOR: //name// CC: Paola Orona [facility] DATE OF SERVICE: 03/19/2019 INFECTIOUS DISEASE CONSULTATION ATTENDING PHYSICIAN: Dr. Breaux. REASON FOR EVALUATION: Febrile illness with encephalopathy, also notes left hip pain. HISTORY OF PRESENT ILLNESS: This patient with fairly profound disability with cerebral palsy and perhaps dementia, who I actually saw in December of this year with a gram-negative septicemia, felt to be secondary to complicated urinary tract infection. She briefly arouses, clearly in moderate distress. She actually complains of right hip pain, although there is a wound on her left. Evaluation noted negative influenza antigen, lactic acid 2.0, white count of 16.3. Chest x-ray was otherwise unremarkable. She was treated empirically with antimicrobial therapy, vancomycin, ceftriaxone and azithromycin. She has defervesced. Hemodynamically, she is relatively stable. ALLERGIES: SULFA. MEDICATIONS: Include azithromycin, atorvastatin, risperidone, aspirin, vancomycin, citalopram, metoprolol, ticagrelor, famotidine, ceftriaxone, and p.r.n. analgesics. PAST MEDICAL HISTORY: As described above, history of diabetes mellitus, hypertension, cerebral palsy, component of dementia, has history of vasculitis, chronic anemia, and previous cholecystectomy. SOCIAL HISTORY: Nonsmoker, no ethanol, no illicit drug use. FAMILY HISTORY: Noncontributory. REVIEW OF SYSTEMS: Not reliably obtained. PHYSICAL EXAMINATION: GENERAL: She is difficult to arouse, briefly makes eye contact. She is in moderate distress, appears chronically ill, undernourished. VITAL SIGNS: Temperature 98.3, pulse 100, respirations 18, and blood pressure 141/78[place] [address] CONSULTATION Name: DAFNE WEI Room: [address] IN [facility].#: [id number] Admission: 03/18/19 Attend Phys: Paola Breaux MD Discharge: Date of : 55 Report #: [id number] SKIN: Warm, dry, no rashes. HEENT: Normocephalic. Extraocular muscles intact. NECK: Supple. LUNGS: Diminished breath sounds. HEART: Borderline tachycardic. I do not appreciate a murmur. ABDOMEN: Mildly distended, soft. There are no overt peritoneal signs. She has got palpable tenderness in the right hip. GENITOURINARY AND RECTAL: Deferred. LABORATORY DATA: Followup CBC: White count of 17.6, H and H 9.9 and 29.9, platelets of 251. Prealbumin 16.5. Electrolytes: Sodium 133, potassium 3.6, chloride 199, bicarbonate is 23, anion gap of 11, BUN and creatinine 18 and 1.2. AST of 46, ALT of 3.6. Albumin of 2.2, total protein of 6.7. Chest x-ray, no acute problems. ASSESSMENT: Febrile illness, uncertain etiology. Urinalysis is pending. Generally in the setting would be concerned about complicated urinary tract infection with her recent history including Escherichia coli septicemia. Noted it was susceptible in vitro to ceftriaxone, pneumonitis apparently not the case. We will go ahead and image her left hip to exclude possibility of occult process there either infectious or noninfectious. She is certainly at high risk for infectious complications. Monitor expectantly. I think she is capable at this point of utilizing an incentive spirometer. We will see how she does the next 24-48 hours. <ELECTRONICALLY SIGNED> By: Jm Black MD 03/20/19 0913 1038 1448Joerica Black MD /nt
[2019-03-20 16:00] VITALS: BP 144/76
[2019-03-20 20:30] VITALS: BP 171/84
[2019-03-21 04:35] LABS: CALCIUM 7.6 mg/dL (8.5-10.1); MAGNESIUM 1.7 mg/dL (1.8-2.4); POTASSIUM 3.6 mmol/L (3.5-5.1); TOTAL BILIRUBIN 0.2 mg/dL (<0.1-1.0); TOTAL PROTEIN 6.4 g/dL (6.4-8.2)
[2019-03-21 04:39] LABS: HEMATOCRIT 28.5 % (37.0-47.0); HEMOGLOBIN 9.4 gm/dL (12.0-15.0); MCH 29.7 pg (26.0-34.0); MCHC 33.1 g/dL (28.0-37.0); MCV 89.7 fL (80.0-100.0); MPV 7.3 fl. (7.2-11.1); RBC 3.18 mil/uL (4.20-5.00); RDW-CV 15.9 % (10.5-14.5); WBC 8.1 thou/uL (4.0-11.0)
[2019-03-21 09:05] VITALS: BP 182/78
--- NOTE | 2019-03-21 11:38 | EKG ---
[place] [address] ELECTROCARDIOGRAM REPORT Name: DAFNE WEI Room: [address] ADM IN .R.#: [id number] Admission: 03/18/19 Attend Phys: Paola Breaux MD Discharge: Date of : 55 Report #: [id number] THIS REPORT FOR: //name// [facility] Test Date: 2019-03-18 Test Time: 20:42:08 Pat Name: DAFNE WEI Department: Room: [address] Gender: F Woods Rider: : 1955 Requested By: Paola Breaux Order Number: [id number] Reading MD: Benjie Ko Measurements Intervals [place] Rate: 103 P: 41 [place]: 154 QRS: 27 QRSD: 103 T: 31 QT: 379 QTc: 496 Interpretive Statements Sinus tachycardia Abnormal R-wave progression, early transition Borderline prolonged QT interval Compared to ECG 03/18/2019 13:57:21 No significant changes Electronically Signed On 03-21-2019 11:38:43 ETL LEAD by Benjie Ko [email or web address] <ELECTRONICALLY SIGNED> By: Benjie Ko MD, [facility] 03/21/19 1138 41 41 Benjie Ko MD, [facility] /EPI
[2019-03-21 16:29] VITALS: BP 160/73
[2019-03-21 20:38] VITALS: BP 152/85
[2019-03-22 08:15] VITALS: BP 165/90
[2019-03-22 15:33] VITALS: BP 171/98
[2019-03-22 16:21] VITALS: BP 171/98
== END 2019-03-22 16:10 | DRG 871 ==
LOC: M.ERS 13:44 → M.TBA-ER 15:56 → M.ORTHSURG 15:56
PROVIDERS: Emergency Medicine Emergency Medical Services; ADMIT Internal Medicine
DX: A41.9 Sepsis, unspecified organism (principal); L89.223 Pressure ulcer of left hip, stage 3; G92 Toxic encephalopathy; L03.116 Cellulitis of left lower limb; E11.9 Type 2 diabetes mellitus without complications; I10 Essential (primary) hypertension; G80.9 Cerebral palsy, unspecified; F03.90 Unspecified dementia, unspecified severity, without behavioral disturbance, psychotic disturbance, mood disturbance, and anxiety; D64.9 Anemia, unspecified; I25.10 Atherosclerotic heart disease of native coronary artery without angina pectoris; Z90.49 Acquired absence of other specified parts of digestive tract; Z95.5 Presence of coronary angioplasty implant and graft; Z79.899 Other long term (current) drug therapy; Z79.4 Long term (current) use of insulin; Z79.82 Long term (current) use of aspirin; Z88.2 Allergy status to sulfonamides; Z82.49 Family history of ischemic heart disease and other diseases of the circulatory system